=== PATIENT | female | born 1945 | race Caucasian/White ===

== ENCOUNTER 2020-05-26 17:24 | Inpatient (IN) ==
[2020-05-26] MEDS ORDERED: SODIUM CHLORIDE 0.9% 1000ML 1,000 ML IV ONE ×2 (18:57→21:41)
--- NOTE | 2020-05-26 19:02 | Emergency Department Note ---
Impression & Plan JAD (acute kidney injury), Renal cell carcinoma, Pleural effusion ED Provider Note NAME: GREGORIO MENCHACA AGE: 75 SEX: F : 1945 ARRIVES VIA: Walk-In INFORMANT: Patient ED PROVIDER(S): Venkat Mosqueda DO CHIEF COMPLAINT: Shortness of breath and belly pain HPI: Patient is a 75-year-old female who presents ER for shortness of breath. This is been present for the past 2 weeks and gradually worsening. She has a history of renal cell carcinoma with a left Pleurx catheter which has been being used to drain fluid in her lungs. She also admits to belly pain with nausea and vomiting. She has been unable to eat and drink much. Pain is diffuse throughout the whole belly and constant. She has been having persistent vomiting. She feels very weak and rundown. Denies any dysuria, urgency or frequency. No other exacerbating or remitting factors. She did have a recent change in her chemo medications and now has 2 new oral medications. ROS: See above HPI for pertinent positives & negatives. A total of 10 systems reviewed and were otherwise negative. PAST MEDICAL HISTORY:See Below PAST SURGICAL HISTORY:See Below FAMILY HISTORY:See Below SOCIAL HISTORY:See Below HOME MEDICATIONS:See Below ALLERGIES:See Below VITALS:See Below PHYSICAL EXAMINATION: GENERAL: Sitting up in bed, alert, chronically ill-appearing, disheveled EYE EXAM: normal conjunctiva. OROPHARYNX: dry NECK: supple, no nuchal rigidity, no adenopathy, non-tender LUNGS: Clear to auscultation. Normal chest wall mechanics. Pleurx catheter in the left lower chest wall HEART: no murmurs, S1 normal and S2 normal ABDOMEN: abdomen soft, non-tender, normo-active bowel sounds, no masses, no rebound or guarding. BACK: Back is symmetrical on inspection and there is no deformity, no midline tenderness, no CVA tenderness. SKIN: no rashes and no bruising UPPER EXTREMITIES: upper extremities are grossly normal. LOWER EXTREMITIES: No pitting edema. NEURO EXAM: Normal sensorium, cranial nerves II-XII grossly intact, normal speech, no gross weakness of arms, no gross weakness of legs. MEDICAL DECISION MAKING: Patient is a 75-year-old female who presents the ER for weakness associated with nausea vomiting. She has been unable to eat or drink much recently. History of renal cell carcinoma on chemotherapy. She does admit to some shortness of breath as well. She is on Lovenox. IV was established blood work was obtained. Labs show mild leukopenia 4000. No significant anemia. BMP with a creatinine of 2.1 up from a baseline of 1. LFTs and bilirubin are unremarkable. Troponin was detectable at 0.051. Lipase was unremarkable. Covid was negative. CT abdomen pelvis and chest shows pleural effusion which is improved from previous. Patient was updated bedside admitted to hospital for further work-up Triage Nursing notes reviewed. Limited review of prior medical records performed Vital Signs: reviewed and remarkable for hypotension Differential diagnosis: Infection, dehydration, metabolic abnormality, hypo/hyperglycemia, electrolyte disturbance, anemia, hypoxia, cardiac sources, intracerebral event, toxicologic, neurologic, as well as other pathologies. ER treatment provided: See below Diagnostics interpreted by me: ECG: Sinus rhythm rate 85 Left axis No PVCs Septal Q waves QTC 428 Cardiac Monitoring: An order was placed for continuous cardiac monitoring. The monitor shows a rate of 81 with sinus rhythm. Laboratory studies: As stated above and show below. Imaging studies: CT of the chest and abdomen pelvis shows pleural effusion Consultation(s): Discussed with hospitalist for further evaluation Procedures: none Critical Care: None Past Med/Surg History Medical History Acid reflux Acoustic neuroma Chronic anticoagulation Diabetes Stopped med History of chemotherapy History of pulmonary embolism Hypertension Hypothyroidism Malignant pleural effusion Presence of IVC filter Removed in Dec. 2018 Pulmonary embolism Renal cell carcinoma (~2012) Shortness of breath Surgical History H/O craniotomy H/O right nephrectomy 03/30/13 H/O: hysterectomy Hx of cataract surgery Bilateral S/P bronchoscopy with biopsy Status post bilateral knee replacements Family History Mother , 92yo Lung cancer Father , 80yo Cancer of eye Metastatic Diabetes Brother Prostate cancer Daughter No problems noted. 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 Other Information That Helps Us Care for You: No Feels Safe at Home: Yes Safety Concerns: Feels Safe At This Time caffeine: Yes (4 cups/day) during the past year weight has: remained stable Assistive Devices: None Allergies Allergies Allergy/AdvReac Type Severity Reaction Status Date / Time [place] And Derivatives Allergy Intermediate Hives Verified 04/29/20 13:02 Iodinated Contrast Media Allergy Intermediate Hives Verified 04/29/20 13:02 [Iodinated Contrast- Oral and IV Dye] shellfish derived Allergy Intermediate Hives Verified 04/29/20 13:02 valsartan Allergy Unknown Unknown Verified 04/29/20 13:02 nivolumab [From Opdivo] AdvReac Intermediate Generalized Verified 04/29/20 13:02 edema pazopanib [From Votrient] AdvReac Intermediate pneumonia Verified 04/29/20 13:02 sunitinib [From Sutent] AdvReac Intermediate Insomnia Verified 04/29/20 13:02 Home Meds Home Medications Medication Instructions Recorded Confirmed allopurinol 100 mg tablet 100 mg PO BID tab 09/17/19 05/26/20 enoxaparin 40 mg/0.4 mL 40 mg SQ BID ml 09/17/19 05/26/20 subcutaneous syringe levothyroxine 137 mcg capsule 137 mcg PO DAILY 09/17/19 05/26/20 pantoprazole 40 mg tablet,delayed 40 mg PO DAILY 09/17/19 05/26/20 release prochlorperazine maleate 10 mg 10 mg PO Q6H PRN 09/17/19 05/26/20 tablet vitamin B complex 1 tab PO DAILY 09/17/19 05/26/20 amlodipine 5 mg tablet 10 mg PO DAILY tab 10/05/19 05/26/20 diphenoxylate-atropine 2.5 1 tab PO DAILY tab 10/05/19 05/26/20 mg-0.025 mg tablet oxycodone-acetaminophen 10 mg-325 1 tab PO Q4H PRN 10/05/19 05/26/20 mg tablet atenolol 50 mg tablet 50 mg PO DAILY tab 04/29/20 05/26/20 [id number] [Ed 1 tab PO Q8H PRN 05/26/20 05/26/20 A-Hist DM] cholecalciferol (vitamin D3) 50 mcg PO DAILY 05/26/20 05/26/20 dexamethasone 10 ml PO Q6H 05/26/20 05/26/20 everolimus (antineoplastic) 5 mg PO DAILY 05/26/20 05/26/20 lenvatinib [Lenvima] 0 mg PO DAILY 05/26/20 05/26/20 psyllium [Metamucil Sugar Free] 1 tbsp PO DAILY 05/26/20 05/26/20 Previous Rx's Medication Instructions Recorded fluticasone propionate 50 1 spray INTRANASAL DAILY #9.9 g 04/29/20 mcg/actuation nasal spray,suspension Results & Data (ED) Vital Signs Vital Signs - 24 hr 05/26/20 17:25 05/26/20 19:20 05/26/20 19:22 Temperature 36.6 C Temperature Source Temporal Artery Scan Pulse Rate 99 H 96 H 96 H Pulse Rate [Right Radial] Pulse Rate from SpO2 Sensor 96 H 97 H Respiratory Rate 18 17 13 Blood Pressure 94/65 L 91/65 L Blood Pressure [Right Arm] Blood Pressure Mean 74 73 Blood Pressure Mean [Right Arm] Pulse Oximetry 95 98 97 Oxygen Delivery Method Room Air Room Air Sepsis Recent Fever Within 48 Hours No Sepsis New/Unexplained Change in Mental Status No Sepsis Action Taken by Nursing No Action Required 05/26/20 20:00 05/26/20 20:20 05/26/20 20:30 Temperature Temperature Source Pulse Rate 98 H 99 H 96 H Pulse Rate [Right Radial] Pulse Rate from SpO2 Sensor 98 H Respiratory Rate 22 20 13 Blood Pressure 117/69 Blood Pressure [Right Arm] Blood Pressure Mean 85 Blood Pressure Mean [Right Arm] Pulse Oximetry 97 Oxygen Delivery Method Sepsis Recent Fever Within 48 Hours Sepsis New/Unexplained Change in Mental Status Sepsis Action Taken by Nursing 05/26/20 20:40 05/26/20 20:46 05/26/20 21:00 Temperature Temperature Source Pulse Rate 94 H 92 H 91 H Pulse Rate [Right Radial] Pulse Rate from SpO2 Sensor 94 H 92 H 91 H Respiratory Rate 15 12 12 Blood Pressure 92/65 L 90/59 L Blood Pressure [Right Arm] Blood Pressure Mean 74 69 Blood Pressure Mean [Right Arm] Pulse Oximetry 96 97 96 Oxygen Delivery Method Sepsis Recent Fever Within 48 Hours Sepsis New/Unexplained Change in Mental Status Sepsis Action Taken by Nursing 05/26/20 21:01 05/26/20 21:25 05/26/20 21:30 Temperature Temperature Source Pulse Rate 91 H 92 H Pulse Rate [Right Radial] 92 H Pulse Rate from SpO2 Sensor 91 H 92 H Respiratory Rate 16 20 12 Blood Pressure 100/59 L Blood Pressure [Right Arm] 90/59 L Blood Pressure Mean 72 Blood Pressure Mean [Right Arm] 69 Pulse Oximetry 97 97 97 Oxygen Delivery Method Room Air Sepsis Recent Fever Within 48 Hours Sepsis New/Unexplained Change in Mental Status Sepsis Action Taken by Nursing 05/26/20 21:31 05/26/20 22:00 05/26/20 22:01 Temperature Temperature Source Pulse Rate 93 H 91 H 92 H Pulse Rate [Right Radial] Pulse Rate from SpO2 Sensor 93 H 92 H 92 H Respiratory Rate 17 15 15 Blood Pressure 99/69 L Blood Pressure [Right Arm] Blood Pressure Mean 79 Blood Pressure Mean [Right Arm] Pulse Oximetry 95 100 98 Oxygen Delivery Method Sepsis Recent Fever Within 48 Hours Sepsis New/Unexplained Change in Mental Status Sepsis Action Taken by Nursing Laboratory Data Result diagrams: 05/26/20 19:30 05/26/20 22:04 Lab Results 05/26/20 05/26/20 05/26/20 Range/Units 19:30 19:30 20:00 WBC 4.47 L (4.8-10.8) K/uL RBC 4.82 (4.2-5.4) M/uL Hgb 15.0 (12.0-16.0) g/dL Hct 43.6 (37-47) % MCV 90.5 (80-100) fL MCH 31.1 (25-34) pg MCHC 34.4 (32-36) g/dL RDW Std Deviation 50.9 H (36.4-46.3) fL RDW Coeff of [place]av[place] 15.3 H (11.5-14.5) % Plt Count 247 (130-400) K/uL MPV 11.4 H (7.4-10.4) fL Immature Gran % (Auto) 0.2 % Neut % (Auto) 68.0 % Lymph % (Auto) 21.0 % Bull[place] % (Auto) 10.1 % Eos % (Auto) 0.7 % Baso % (Auto) 0.0 % Neut # (Auto) 3.04 (1.4-6.5) K/uL Lymph # (Auto) 0.94 L (1.2-3.4) K/uL [place] # (Auto) 0.45 (0.11-0.59) K/uL Eos # (Auto) 0.03 (0-0.5) K/uL Baso # (Auto) 0.00 (0-0.2) K/uL Immature Gran # (Auto) 0.01 (0.00-0.02) K/uL Sodium 136 (136-145) mmol/L Potassium (3.5-5.1) mmol/L Chloride 107 (98-107) mmol/L Carbon Dioxide 19 L (21-32) mmol/L Anion Gap 10.0 (3-11) BUN 36 H (7-18) mg/dl Creatinine 2.13 H (0.6-1.2) mg/dl Est Cr Clr Drug Dosing 25.1 ml/min Est GFR ( Amer) 25.6 Est GFR (Non-Af Amer) 22.1 BUN/Creatinine Ratio 16.9 (10-20) Glucose 132 H (70-99) mg/dl Calcium 8.3 L (8.5-10.1) mg/dl Total Bilirubin 1.2 H (0.2-1) mg/dl AST (15-37) U/L ALT 44 (12-78) U/L Alkaline Phosphatase 142 H (45-117) U/L Troponin I (0-0.045) ng/ml Total Protein 6.6 (6.4-8.2) gm/dl Albumin 2.9 L (3.4-5.0) gm/dl Globulin 3.7 (2.5-4.0) gm/dl Albumin/Globulin Ratio 0.8 L (0.9-2) Lipase 260 (73-393) U/L COVID-19 Eval Order Covid19 [facility] SARS-CoV-2, RNA, NAAT (NEGATIVE) 05/26/20 05/26/20 Range/Units 20:00 22:04 WBC (4.8-10.8) K/uL RBC (4.2-5.4) M/uL Hgb (12.0-16.0) g/dL Hct (37-47) % MCV (80-100) fL MCH (25-34) pg MCHC (32-36) g/dL RDW Std Deviation (36.4-46.3) fL RDW Coeff of Gaviota (11.5-14.5) % Plt Count (130-400) K/uL MPV (7.4-10.4) fL Immature Gran % (Auto) % Neut % (Auto) % Lymph % (Auto) % [place] % (Auto) % Eos % (Auto) % Baso % (Auto) % Neut # (Auto) (1.4-6.5) K/uL Lymph # (Auto) (1.2-3.4) K/uL [place] # (Auto) (0.11-0.59) K/uL Eos # (Auto) (0-0.5) K/uL Baso # (Auto) (0-0.2) K/uL Immature Gran # (Auto) (0.00-0.02) K/uL Sodium (136-145) mmol/L Potassium 4.2 (3.5-5.1) mmol/L Chloride (98-107) mmol/L Carbon Dioxide (21-32) mmol/L Anion Gap (3-11) BUN (7-18) mg/dl Creatinine (0.6-1.2) mg/dl Est Cr Clr Drug Dosing ml/min Est GFR ( Amer) Est GFR (Non-Af Amer) BUN/Creatinine Ratio (10-20) Glucose (70-99) mg/dl Calcium (8.5-10.1) mg/dl Total Bilirubin (0.2-1) mg/dl AST 25 (15-37) U/L ALT (12-78) U/L Alkaline Phosphatase (45-117) U/L Troponin I 0.051 H* (0-0.045) ng/ml Total Protein (6.4-8.2) gm/dl Albumin (3.4-5.0) gm/dl Globulin (2.5-4.0) gm/dl Albumin/Globulin Ratio (0.9-2) Lipase (73-393) U/L COVID-19 Eval Order SARS-CoV-2, RNA, NAAT NEGATIVE (NEGATIVE) Administered Medications Discontinued Medications Sodium Chloride (Nss 1000ml) 1,000 mls @ 999 mls/hr IV .Q1H1M ONE Stop: 05/26/20 19:57 Last Infusion: 05/26/20 21:50 Dose: 0 mls/hr Documented by: [id number] Admin: 05/26/20 20:41 Dose: 999 mls/hr Documented by: [id number] Sodium Chloride (Nss 1000ml) 1,000 mls @ 999 mls/hr IV .Q1H1M ONE Stop: 05/26/20 22:41 Last Admin: 05/26/20 21:53 Dose: 999 mls/hr Documented by: [id number] Ketorolac Tromethamine (Ketorolac Tromethamine 15 Mg/Ml Vial) 15 mg IV NOW ONE Stop: 05/26/20 19:22 Last Admin: 05/26/20 20:41 Dose: 15 mg Documented by: [id number] Ondansetron HCl (Ondansetron Inj 2 Mg/Ml 2 Ml Vial) 4 mg IV NOW STA Stop: 05/26/20 19:22 Last Admin: 05/26/20 20:41 Dose: 4 mg Documented by: [id number] Discharge Plan Visit Data Chief Complaint: Dehydration Stated Complaint: DEHYDRATION ED Provider: Venkat Mosqueda Discharge Problem: JAD (acute kidney injury), Renal cell carcinoma, Pleural effusion Patient Disposition: Admitted As Inpatient Discharge Instructions Interventions: ED Discharge Assessment Last Done: 05/26/20 23:56 Discharge Problem: Renal cell carcinoma Qualifiers: Laterality: unspecified laterality Qualified Code(s): C64.9 - Malignant neoplasm of unspecified kidney, except renal pelvis
[2020-05-26] MEDS ORDERED: ONDANSETRON INJ 2 MG/ML 2 ML VIAL IV STA (19:21)
[2020-05-26] MEDS ORDERED: KETOROLAC TROMETHAMINE 15 MG/ML VIAL IV ONE (19:21)
--- NOTE | 2020-05-26 20:32 | CT Scan Report ---
CT SCAN OF THE CHEST, ABDOMEN, AND PELVIS WITHOUT IV CONTRAST CLINICAL HISTORY: Dyspnea. Generalized abdominal pain. Metastatic renal cell carcinoma. COMPARISON STUDY: CT scan of the chest, abdomen, and pelvis dated 03/28/2020. TECHNIQUE: Unenhanced CT scan of the chest, abdomen, and pelvis was performed from the thoracic inlet to the proximal femora. Images are reviewed in the axial, sagittal, and coronal planes. IV contrast was not administered as per the referring clinician. Note that the examination was performed in signi ficantly suboptimal fashion without oral and IV contrast. A dose lowering technique was utilized adh ering to the principles of ALARA. CT DOSE: 591.08 mGy.cm FINDINGS: CHEST: Thyroid: The left lobe is atrophic versus surgically absent. A calcification is noted in the right lo be. Thoracic aorta: There is mild atherosclerotic calcification of the thoracic aorta, which is normal in caliber and demonstrates standard 3-vessel arch anatomy. Heart: The heart is normal in size noting trace pericardial effusion. The coronary arteries are dense ly calcified. Lungs and pleural spaces: The trachea and central airways are clear. A pleural drain is present at th e right lung base. There is a moderate left pleural effusion with associated atelectasis. This has mo destly decreased in size as compared to 03/28/2020 no right pleural effusion is identified. A 1.7 cm irregular nodule in the right middle lobe seen on image #151has modestly increased in size as compar ed to 03/28/2020. An 1.1 cm right upper lobe nodule on image #118 has not appreciably changed. A 3 mm right apical nodule on image #66 is also stable from previous. There is no pneumothorax. Mediastinum: There is no mediastinal lymphadenopathy. Teagan: Not well assessed without IV contrast. Axillae: There is no axillary lymphadenopathy. Bony thorax: The skeletal structures are osteopenic. Again seen are findings of diffuse/multifocal o steoblastic metastatic disease. Lesions are seen throughout the sternum, the thoracic spine, and invo lving the bilateral ribs. A large erosive lesion is again seen in the left fifth rib with cortical de struction/pathologic fracture both laterally and posteriorly. There is a pathologic compression fract ure of T6 with moderate loss of height and a minimal superior endplate compression fracture of T3. Th miguelangel are similar to previous. Advanced arthritic change is noted in the shoulders. . ABDOMEN AND PELVIS: Liver: The unenhanced liver is normal in size, contour, and attenuation. There is no intrahepatic cristina iary ductal dilatation. Gallbladder: The gallbladder is distended but otherwise normal in appearance. Spleen: Normal in size and attenuation. Pancreas: The unenhanced pancreas is atrophic and grossly unremarkable. Adrenal glands: Unremarkable. Kidneys: The right kidney is surgically absent. The unenhanced left kidney demonstrates cortical atro phy and is without hydronephrosis. . No left renal calculi are identified. There is no evidence of co ntour deforming mass lesion of the left kidney. Abdominal vasculature: The abdominal aorta is normal in course and caliber noting mild to moderate at herosclerotic calcification. Bowel: There is moderate sigmoid diverticulosis without CT evidence of acute diverticulitis. No bowel obstruction is seen. A large incisional hernia in the right lower quadrant contains nonobstructed rashawn wel loops.. The appendix is well-visualized and normal. Peritoneum: There is no intraperitoneal free air or abdominal ascites. Lymphadenopathy: None. Pelvic viscera: The bladder is normal as visualized. The uterus is surgically absent. No adnexal lesi on is seen. There is focal expansion of the left obturator internus muscle seen on axial image #342. This represents a change from 03/28/2020. Skeletal structures: The skeletal structures are osteopenic. Findings of multifocal osteoblastic meta static disease are similar to previous. Soft tissues: Foci of induration within the ventral abdominal wall are likely related to subcutaneous injections. Soft tissue edema is again seen in the left breast. IMPRESSION: 1. Significantly suboptimal examination without oral and IV contrast. 2. A pleural drain at the left lung base is new from the 03/28/2020 examination. 3. There is a moderate left pleural effusion with associated atelectasis. This has modestly decreased in size from 03/28/2020. 4. There is no airspace consolidation typical for pneumonia. 5. Right-sided pulmonary lesions are again noted. A right middle lobe lesion has modestly decreased i n size from previous. 6. Status post right nephrectomy. 7. There is focal expansion of the left obturator internus muscle. This represent a change from 03/28 and likely represents intramuscular hemorrhage. Metastatic disease is considered much less like ly. Attention at follow-up is recommended. 8. A large hernia in the right lower quadrant contains nonobstructed bowel loops. 9. Multifocal osseous metastatic disease is similar to previous. 10. Additional findings as above. ACT 112: Negative or not required by law. Electronically signed by: Navdeep Arana M.D. 05/26/2020 8:31 PM
[2020-05-26 21:02] LABS: Eosinophils # (auto) 0.03 K/uL (0-0.5); Eosinophils % (auto) 0.7 %; Hematocrit (blood only) 43.6 % (37-47); Immature Granulocytes # (auto) 0.01 K/uL (0.00-0.02); Immature Granulocytes % (auto) 0.2 %; Lymphocytes # (auto) 0.94 K/uL (1.2-3.4); Mean Corpuscular Hemoglobin 31.1 pg (25-34); Mean Corpuscular Hgb Conc 34.4 g/dL (32-36); Mean Corpuscular Volume 90.5 fL (80-100); Mean Platelet Volume 11.4 fL (7.4-10.4); Monocytes # (auto) 0.45 K/uL (0.11-0.59); Monocytes % (auto) 10.1 %; Neutrophils # (auto) 3.04 K/uL (1.4-6.5); Platelet Count 247 K/uL (130-400); RDW Coefficient of Variation 15.3 % (11.5-14.5); RDW Standard Deviation 50.9 fL (36.4-46.3); Red Blood Count 4.82 M/uL (4.2-5.4); White Blood Count 4.47 K/uL (4.8-10.8)
[2020-05-26 21:30] LABS: Albumin Globulin Ratio 0.8 (0.9-2); Albumin Level 2.9 gm/dl (3.4-5.0); BUN Creatinine Ratio 16.9 (10-20); Bilirubin,Total 1.2 mg/dl (0.2-1); Calcium 8.3 mg/dl (8.5-10.1); Creatinine Clr Calc Pharmacy 25.1 ml/min; Est GFR (African American) 25.6; Est GFR (Non-African American) 22.1; Globulin 3.7 gm/dl (2.5-4.0); Total Protein 6.6 gm/dl (6.4-8.2)
--- NOTE | 2020-05-26 22:26 | History & Physical Report ---
Date of Service May 26, 2020 Assessment & Plan (1) Dyspnea: 75-year-old female past medical history significant for metastatic renal cell carcinoma s/p right nephrectomy with malignant pleural effusion s/p Pleurx catheter, hypertension, hypothyroidism, GERD, history PE on chronic Lovenox therapy admitted for shortness of breath, JAD, malnutrition. Dyspnea with history malignant pleural effusion: On presentation with sensation of dyspnea, saturating well on room air. Mildly elevated troponin to 0.051 without EKG changes. Will trend this. Patient has had shortness of breath constant for several weeks, unlikely to be cardiac in origin. CT chest shows moderate sized left pleural effusion, is not mentioned to be loculated but patient does note decreased output over the last 2 week or so. Patient does have a history of PE in the past, however has been on therapeutic Lovenox twice daily, and is not hypoxic on presentation. No findings on imaging suggestive of pneumonia. Pulmonology consult placed to evaluate pleural effusion and PleurX, unclear if patient may benefit from intervention such as intra-PleurX alteplase. Incentive spirometer every hour while awake for findings of atelectasis. JAD: Patient on arrival with JAD to 2.13, hypotension, elevated BUN suggestive of prerenal JAD. This is in the setting of decreased p.o. intake of both food and fluids for several weeks due to decreased appetite, as well as fluid loss secondary to vomiting. Received 1 L NSS bolus in ER, continue NSS at 100 cc/hr and encourage p.o. intake, antiemetics on board. Can decrease IV fluids as patient tolerates p.o. intake. Monitor BP, and CMP in the morning. Severe protein calorie malnutrition: Patient admits to several weeks of poor appetite, as well as nausea and vomiting. Does not take antiemetics at home. Since last admission in April of this year, patient has lost 9 kg in weight. Dietary consult placed, and boost supplements twice daily ordered. Compazine and Zofran as needed for nausea/vomiting. Metastatic renal cell carcinoma: Currently on Lenvima and everolimus therapies, follows with Dr. Powell with oncology. Consult placed given patient's relative intolerance to these medications over the last week. Continue chemotherapeutic agents for now. Elevated Alk Phos: Noted to have Alk Phos of 142 on admission, no abdominal complaints though has had nausea and vomiting suspected to be due to chemotherapy medications. Patient does have bony metastases which could account for elevation. Repeat Alk Phos in AM. Will evaluate further if still elevated. Hypothyroidism: Continue home levothyroxine. GERD: Continue home pantoprazole. CODE STATUS: DNR/DNI FEN GI: Regular diet, boost twice daily, NSS at 100 cc/hr DVT prophylaxis: Continue therapeutic Lovenox 40 mg SQ twice daily Dispo: Med/Surg for dietary evaluation, Pulmonology and Oncology consults, PT/OT (2) JAD (acute kidney injury): (3) History of pulmonary embolism: (4) Malignant pleural effusion: (5) Hypothyroidism: (6) Acid reflux: (7) Nausea: (8) Severe protein-calorie malnutrition: (9) Metastatic renal cell carcinoma: History of Present Illness Chief Complaint: SOB Primary Care Provider: Yaritza Hawkins PA-C 75-year-old female past medical history significant for metastatic renal cell carcinoma s/p right nephrectomy with malignant pleural effusion s/p Pleurx catheter, hypertension, hypothyroidism, GERD, history PE on chronic Lovenox therapy who presented to the ER for worsening shortness of breath over the last 2 weeks, without associated chest pain, diaphoresis, abdominal pain, recent fevers or chills. Reports that over the same amount of time, she has noticed a decrease in output from her Pleurx catheter. She also reports that about a week ago some of her chemotherapy medications were changed, and she started Lenvima and everolimus therapy at the direction of Dr. Powell. She admits that since getting the Pleurx catheter her appetite has been getting worse and worse, such that she has to "force herself to eat and drink, and every time she does she feels like she is going to throw up". Has been having a lot of dry heaves, and therefore eats very little. In the ER patient was found to have leukopenia to 4.47 without neutropenia, elevated BUN and creatinine to 2.13, mildly elevated alk phos to 142, mildly elevated troponin to 0.051 without EKG changes suggestive of [place]. COVID-[address] chest showed moderate left pleural effusion and atelectasis, no findings suggestive of pneumonia. Allergies Allergy/AdvReac Type Severity Reaction Status Date / Time [place] And Derivatives Allergy Intermediate Hives Verified 04/29/20 13:02 Iodinated Contrast Media Allergy Intermediate Hives Verified 04/29/20 13:02 [Iodinated Contrast- Oral and IV Dye] shellfish derived Allergy Intermediate Hives Verified 04/29/20 13:02 valsartan Allergy Unknown Unknown Verified 04/29/20 13:02 nivolumab [From Opdivo] AdvReac Intermediate Generalized Verified 04/29/20 13:02 edema pazopanib [From Votrient] AdvReac Intermediate pneumonia Verified 04/29/20 13:02 sunitinib [From Sutent] AdvReac Intermediate Insomnia Verified 04/29/20 13:02 Home Medications Medication Instructions Recorded Confirmed Type allopurinol 100 mg tablet 100 mg PO BID tab 09/17/19 05/26/20 History enoxaparin 40 mg/0.4 mL 40 mg SQ BID ml 09/17/19 05/26/20 History subcutaneous syringe levothyroxine 137 mcg capsule 137 mcg PO DAILY 09/17/19 05/26/20 History pantoprazole 40 mg tablet,delayed 40 mg PO DAILY 09/17/19 05/26/20 History release prochlorperazine maleate 10 mg 10 mg PO Q6H PRN 09/17/19 05/26/20 History tablet vitamin B complex 1 tab PO DAILY 09/17/19 05/26/20 History amlodipine 5 mg tablet 10 mg PO DAILY tab 10/05/19 05/26/20 History diphenoxylate-atropine 2.5 1 tab PO DAILY tab 10/05/19 05/26/20 History mg-0.025 mg tablet oxycodone-acetaminophen 10 mg-325 1 tab PO Q4H PRN 10/05/19 05/26/20 History mg tablet atenolol 50 mg tablet 50 mg PO DAILY tab 04/29/20 05/26/20 History fluticasone propionate 50 1 spray INTRANASAL DAILY #9.9 g 04/29/20 05/26/20 Rx mcg/actuation nasal spray,suspension [id number] [Ed 1 tab PO Q8H PRN 05/26/20 05/26/20 History A-Hist DM] cholecalciferol (vitamin D3) 50 mcg PO DAILY 05/26/20 05/26/20 History dexamethasone 10 ml PO Q6H 05/26/20 05/26/20 History everolimus (antineoplastic) 5 mg PO DAILY 05/26/20 05/26/20 History lenvatinib [Lenvima] 0 mg PO DAILY 05/26/20 05/26/20 History psyllium [Metamucil Sugar Free] 1 tbsp PO DAILY 05/26/20 05/26/20 History Past Med/Surg History Medical History Acid reflux Acoustic neuroma Chronic anticoagulation Diabetes Stopped med History of chemotherapy History of pulmonary embolism Hypertension Hypothyroidism Malignant pleural effusion Presence of IVC filter Removed in 2018 Pulmonary embolism Renal cell carcinoma (~2012) Shortness of breath Surgical History H/O craniotomy H/O right nephrectomy 03/30/13 H/O: hysterectomy Hx of cataract surgery Bilateral S/P bronchoscopy with biopsy Status post bilateral knee replacements Family History Mother , 92yo Lung cancer Father , 80yo Cancer of eye Metastatic Diabetes Brother Prostate cancer Daughter No problems noted. 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 Other Information That Helps Us Care for You: No Feels Safe at Home: Yes Safety Concerns: Feels Safe At This Time caffeine: Yes (4 cups/day) during the past year weight has: remained stable Assistive Devices: None Review of Systems Review of Systems: All systems reviewed & are unremarkable except as noted in HPI & below Constitutional: + malaise and + weakness (full body); no fever and no chills Respiratory: + dyspnea; no cough Cardiovascular: no chest pain, no palpitations and no edema Gastrointestinal: + nausea and + vomiting; no abdominal pain, no constipation and no diarrhea/loose stools Genitourinary: no dysuria and no hematuria Neurologic: no dizziness, no syncope and no headache(s) Physical Exam Constitutional: WD/WN, vitals as above Eyes: PERRL, conjunctivae normal, anicteric sclerae ENMT: external ear and nose normal, oropharynx normal Neck: normal visual inspection Respiratory: normal respiratory effort; does not use accessory muscles and no cough Decreased breath sounds left lung base, no wheezes, no crackles Cardiovascular: Rate/Rhythm: regular rate and regular rhythm Heart Sounds: no murmur L>R 1+ peripheral edema, no calf tenderness Gastrointestinal (Abdomen): normal bowel sounds, soft, nontender, no hepatosplenomegaly Musculoskeletal: no cyanosis or clubbing, extremities motor strength 5/5 Skin: no rashes, warm and dry Left Pleurx catheter site clean, dry, no purulent drainage, no erythema or tenderness Neurologic: AAOx3, normal speech. Bilateral UE, LE, and face without sensory or motor deficits. Psychiatric: A+Ox3, euthymic affect Results & Data Results & Data ([facility]) Vital Signs (Past 12 Hours) Vital Signs Temp Pulse Pulse Resp BP BP Pulse Ox 05/26/20 22:01 92 H 15 98 05/26/20 22:00 91 H 15 99/69 L 100 05/26/20 21:31 93 H 17 95 05/26/20 21:30 92 H 11 L 100/59 L 97 05/26/20 21:25 92 H 20 90/59 L 97 05/26/20 21:01 91 H 16 97 05/26/20 21:00 91 H 12 90/59 L 96 05/26/20 20:46 92 H 12 92/65 L 97 05/26/20 20:40 94 H 15 96 05/26/20 20:30 96 H 13 05/26/20 20:20 99 H 20 05/26/20 20:00 98 H 22 117/69 97 05/26/20 19:22 96 H 13 97 05/26/20 19:20 96 H 17 91/65 L 98 05/26/20 17:25 36.6 C 99 H 18 94/65 L 95 Code Status & VTE Plan VTE Prophylaxis Plan VTE Prophylaxis will be ordered: Yes Supervising Physician Co-Signing Physician Notes Patient seen and examined, chart reviewed, case discussed with Dr. Meléndez at time of admission and I agree with her assessment and plan as docuemented above. Briefly, Ms. Hedrick is a 75yo female with history of metastatic RCC with recurrent malignant pleural effusion s/p PleurX catheter placement, HTN, PE on Lovenox presenting with SOB, JAD On exam she is cachectic, chronically ill in appearance HEENT - NC/AT, PERRL, MMM Heart - +S1/S2, regular, no m/r/g, 1+ peripheral edema Lungs - Diminished breath sounds in left base - pleurX catheter in place with dressing covering c/d/i Abd - +BS, soft, mildly tender with deep palpation, no rebound/guarding/peritoneal signs Ext - 1+ edema Labs and images reviewed. Significant for chronic leukopenia, Elevated BUN and Cr from baseline to 36 and 2.13, respectively. Tbili=1.2, US=524, Trop = 0.051 Assessment/Plan - suspect element of dehydration - JAD -Gentle IVF -Dietary consultation -Repeat LFTs with additional imaging if worsening -Pulmonary consultation appreciated for PleurX evaluation -Remainder of plan as above Resident Activity Tracking Resident Involvement: Resident Care Provided Care Provided: Adult Hospital Medicine (1) Metastatic renal cell carcinoma Laterality: right Qualified Code(s): C64.1 - Malignant neoplasm of right kidney, except renal pelvis
[2020-05-26 22:36] LABS: Potassium 4.2 mmol/L (3.5-5.1)
[2020-05-26 22:53] LABS: Troponin I 0.051 ng/ml (0-0.045)
[2020-05-26 23:16] LABS: Appearance Urine Clear (Clear); Bacteria Urine Automated Negative (Negative); Blood Urine Negative (Negative); Color Urine Dark Yellow; Epithelial Cell Urine Auto >30 /lpf (0-5); Glucose Urine UA Negative (Negative); Ketones Urine 1+ (Negative); Leukocyte Esterase Urine Trace (Negative); Nitrite Urine Negative (Negative); Protein Urine 2+ (Negative); RBC Urine Automated 0-4 /hpf (0-4); Specific Gravity Urine 1.019 (1.000-1.030); Urobilinogen Urine Negative (Negative); pH Urine 5.5 (4.5-7.5)
[2020-05-26 23:45] LABS: Bilirubin Urine 2+ (Negative)
[2020-05-27] MEDS ORDERED: PROCHLORPERAZINE MALEATE 10 MG TAB PO PRN (00:19)
[2020-05-27] MEDS ORDERED: POLYETHYLENE (MIRALAX) 17 GM PACK PO PRN (00:19)
[2020-05-27] MEDS ORDERED: ONDANSETRON INJ 2 MG/ML 2 ML VIAL IV PRN (00:19)
[2020-05-27] MEDS: SODIUM CHLORIDE 0.9% 1000ML 1,000 ML IV SCH ×3 (00:30→23:51)
[2020-05-27] MEDS ORDERED: ENOXAPARIN INJ 30 MG/0.3 ML SYR SQ ONE (00:45)
--- NOTE | 2020-05-27 02:58 | Billing Data ---
Date of Service May 26, 2020 Coding Level of Care Code 60501 Initial Inpt Care Lvl 3
[2020-05-27] MEDS: LEVOTHYROXINE SODIUM 137 MCG TABLET PO SCH (05:08)
[2020-05-27 06:29] LABS: Eosinophils % (auto) 2.9 %; Hemoglobin 12.3 g/dL (12.0-16.0); Immature Granulocytes # (auto) 0.01 K/uL (0.00-0.02); Immature Granulocytes % (auto) 0.3 %; Lymphocytes # (auto) 0.98 K/uL (1.2-3.4); Lymphocytes % (auto) 28.3 %; Mean Corpuscular Hemoglobin 30.2 pg (25-34); Mean Corpuscular Hgb Conc 33.2 g/dL (32-36); Mean Corpuscular Volume 90.9 fL (80-100); Mean Platelet Volume 11.1 fL (7.4-10.4); Monocytes # (auto) 0.45 K/uL (0.11-0.59); Neutrophils # (auto) 1.92 K/uL (1.4-6.5); Neutrophils % (auto) 55.5 %; Platelet Count 188 K/uL (130-400); RDW Coefficient of Variation 15.4 % (11.5-14.5); RDW Standard Deviation 51.4 fL (36.4-46.3); Red Blood Count 4.07 M/uL (4.2-5.4); White Blood Count 3.46 K/uL (4.8-10.8)
[2020-05-27 07:26] LABS: Albumin Globulin Ratio 0.8 (0.9-2); Albumin Level 2.1 gm/dl (3.4-5.0); BUN Creatinine Ratio 19.7 (10-20); Creatinine Clr Calc Pharmacy 31.8 ml/min; Est GFR (African American) 34.1; Est GFR (Non-African American) 29.4; Globulin 2.7 gm/dl (2.5-4.0); Potassium 3.9 mmol/L (3.5-5.1); Total Protein 4.8 gm/dl (6.4-8.2); Troponin I 0.053 ng/ml (0-0.045)
[2020-05-27] MEDS: FLUTICASONE PROPIONATE NA SPR 16 GM BTL SCH (08:19)
[2020-05-27] MEDS: allopurinoL 100 MG TAB PO SCH ×2 (08:32→20:32)
[2020-05-27] MEDS: DIPHENOXYLATE/ATROPINE 2.5/0.025MG TAB PO SCH (08:32)
[2020-05-27] MEDS: PANTOprazole 40 MG TAB PO SCH (08:32)
[2020-05-27] MEDS: ATENOLOL 50 MG TABLET PO SCH (08:34)
--- NOTE | 2020-05-27 08:51 | Hospitalist Progress Note ---
Date of Service May 27, 2020 Assessment & Plan Admission and Anticipated Discharge Date Admission Date: May 26, 2020 Results & Data Results & Data ([facility]) Vital Signs (Past 12 Hours) Vital Signs Temp Pulse Pulse Pulse Resp BP BP 05/27/20 07:24 36.5 C 104 H 16 95/60 L 05/27/20 00:19 36.8 C 104 H 20 05/26/20 23:56 92 H 16 90/67 L 05/26/20 23:31 93 H 20 05/26/20 23:30 93 H 15 90/67 L 05/26/20 23:03 99 H 21 05/26/20 22:31 90 14 05/26/20 22:30 90 15 107/58 L 05/26/20 22:01 92 H 15 05/26/20 22:00 91 H 15 99/69 L 05/26/20 21:31 93 H 17 05/26/20 21:30 92 H 12 100/59 L 05/26/20 21:25 92 H 20 05/26/20 21:01 91 H 16 05/26/20 21:00 91 H 12 90/59 L BP Pulse Ox 05/27/20 07:24 93 05/27/20 00:19 97/64 L 93 05/26/20 23:56 95 05/26/20 23:31 96 05/26/20 23:30 95 05/26/20 23:03 94 05/26/20 22:31 97 05/26/20 22:30 97 05/26/20 22:01 98 05/26/20 22:00 100 05/26/20 21:31 95 05/26/20 21:30 97 05/26/20 21:25 90/59 L 97 05/26/20 21:01 97 05/26/20 21:00 96
--- NOTE | 2020-05-27 09:07 | Hospitalist Progress Note ---
Date of Service May 27, 2020 Assessment & Plan Admission and Anticipated Discharge Date Admission Date: May 26, 2020 Kelin is a 57 year old female with a pertinent hx of metastatic renal cell carcinoma recently on a course of chemo that she was unable to complete and malignant pleural effusions with a pleurx catheter placed in early April who presented with a 2 week history of shortness of breath accompanied by n/v, abdominal pain, and decreased PO intake who was found to be in a prerenal JAD on admission. DDx- pleural effusions, atelectasis, PNA, pneumothorax Possible causes for her SOB include her currently pleural effusions. Although im proved from previous admission, her pleurx catheter drainage has been decreasing as compared to before. She is currently using incentive spirometry to monitor for atelectasis. Imaging in the ED did not show evidence of pneumonia or pneumothorax. Dyspnea - Incentive spirometry - Pleurx Catheter JAD - NSS 100 cc/hr - encourage PO intake - antiemetics (Compazine and Zofran) available Severe protein calorie malnutrition - Normal diet - Boost supplements twice daily - Antiemetics Metastatic Renal Cell Carcinoma - lenvatinib and everolimus Elevated alkaline phosphate - 142 on admission, this AM 103 - Bony mets of the thoracic spine and ribs seen on CT Hypothyroidism - Continue levothyroxine GERD - Continue Pantoprazole DVT prophylaxis - Lovenox (30 mg SQ BID) Code status: DNR/DNR Supervising Physician Co-Signing Physician Notes Medical Student Supervision Note: I was personally present during medical student patient encounter and independently interviewed and examined the patient and verified the gallegos history and physical, reviewed labs and image studies, discussed the case with Mari Millard and agree with the findings and care plan. JAD due to Poor oral intake sec to chemotherapy leading to severe dehydration/protein/calorie malnutrition - IV hydration. encourage PO intake. Dietary consult. Decision to d/c chemo awaiting discussion with primary oncologist. Dyspneic symptom likely from severe dehydration and hypovolemia - continue as above. Subjective Kelin Hedrick is a 75 year old female with a pertinent past medical history of metastatic renal cell carcinoma with right nephrectomy, malignant pleural effusions with pleurx catheter, admitted last night from the ED for a 2 week history of shortness of breath. In early April she was admitted for SOB of breath and found to be in mild hypoxia with a left pleural effusions, treated with a thoracocentesis and pleurx catheter. She has had difficulty breathing when just trying to walk a feet. She has also had accompany upper belly pain, nausea and vomiting, and decreased appetite. She began her new chemo regime on May 14 through May 22. On the first day she experienced diarrhea, nausea, and muscle aches without fevers or chills. She progressively developed more nausea and vomiting with decreased appetite. She does not take an anti-emetics at home. She felt generalized weakness by the end of the week. On presentation to the ED she was found to have a prerenal JAD and treated with 1 L NSS Bolus. Compazine and Zofran are available for nausea as needed. Troponin was elevated at 0.051 and alkaline phosphate was elevated at 142. CT showed pleural effusions that have improved since her April admission. Today she reports fatigue attributed to not sleep last night. She continues to not have an appetite and did not eat her breakfast. She is working on her fluid intake but it is still decreased. Review of Systems Review of Systems: ROS Constitutional: -fever/chills, +nausea, -vomiting, +decreased appetite, Head: -LOC, -change in vision, -lightheadedness Neurologic: -syncope, -focal weakness, -numbness, -dizziness Cardiac: -chest pain, -edema Pulm: -cough, -sputum production, +SOB, -pain on inspiration, Skin: -itching, -rashes GI: -diarrhea, - constipation, -abdominal pain, -distention Physical Exam Physical Exam: Physical Exam General: alert and oriented, in no acute distress, fatigued Eyes: pupils equal/round, reactive to light, no scleral icterus Neck: no lymphadenopathy Cardio: RRR, no rubs/ gallop, normal capillary refill, no lower extremity edema Lungs: symmetrical b/l entry and normal effort, clear to auscultation Abdominal: active decreased bowel sounds, abdomen non-distended non-tender Results & Data Results & Data ([facility]) Vital Signs (Past 12 Hours) Vital Signs Temp Pulse Pulse Pulse Resp BP BP 05/27/20 07:24 36.5 C 104 H 16 95/60 L 05/27/20 00:19 36.8 C 104 H 05/26/20 23:56 92 H 16 90/67 L 05/26/20 23:31 93 H 05/26/20 23:30 93 H 15 90/67 L 05/26/20 23:03 99 H 21 05/26/20 22:31 90 14 05/26/20 22:30 90 15 107/58 L 05/26/20 22:01 92 H 15 05/26/20 22:00 91 H 15 99/69 L 05/26/20 21:31 93 H 17 05/26/20 21:30 92 H 12 100/59 L 05/26/20 21:25 92 H 20 I: 2000 mL, O: 0 Lab Results 05/26/20 05/26/20 05/26/20 Range/Units 19:30 19:30 20:00 WBC 4.47 L (4.8-10.8) K/uL RBC 4.82 (4.2-5.4) M/uL Hgb 15.0 (12.0-16.0) g/dL Hct 43.6 (37-47) % MCV 90.5 (80-100) fL MCH 31.1 (25-34) pg MCHC 34.4 (32-36) g/dL RDW Std Deviation 50.9 H (36.4-46.3) fL RDW Coeff of [place] 15.3 H (11.5-14.5) % Plt Count 247 (130-400) K/uL MPV 11.4 H (7.4-10.4) fL Immature Gran % (Auto) 0.2 % Neut % (Auto) 68.0 % Lymph % (Auto) 21.0 % [place] % (Auto) 10.1 % Eos % (Auto) 0.7 % Baso % (Auto) 0.0 % Neut # (Auto) 3.04 (1.4-6.5) K/uL Lymph # (Auto) 0.94 L (1.2-3.4) K/uL [place] # (Auto) 0.45 (0.11-0.59) K/uL Eos # (Auto) 0.03 (0-0.5) K/uL Baso # (Auto) 0.00 (0-0.2) K/uL Immature Gran # (Auto) 0.01 (0.00-0.02) K/uL Sodium 136 (136-145) mmol/L Potassium (3.5-5.1) mmol/L Chloride 107 (98-107) mmol/L Carbon Dioxide 19 L (21-32) mmol/L Anion Gap 10.0 (3-11) BUN 36 H (7-18) mg/dl Creatinine 2.13 H (0.6-1.2) mg/dl Est Cr Clr Drug Dosing 25.1 ml/min Est GFR ( Amer) 25.6 Est GFR (Non-Af Amer) 22.1 BUN/Creatinine Ratio 16.9 (10-20) Glucose 132 H (70-99) mg/dl Calcium 8.3 L (8.5-10.1) mg/dl Total Bilirubin 1.2 H (0.2-1) mg/dl AST (15-37) U/L ALT 44 (12-78) U/L Alkaline Phosphatase 142 H (45-117) U/L Troponin I (0-0.045) ng/ml Total Protein 6.6 (6.4-8.2) gm/dl Albumin 2.9 L (3.4-5.0) gm/dl Globulin 3.7 (2.5-4.0) gm/dl Albumin/Globulin Ratio 0.8 L (0.9-2) Lipase 260 (73-393) U/L Urine Color Urine Appearance (Clear) Urine pH (4.5-7.5) Ur Specific [place] (1.000-1.030) Urine Protein (Negative) Urine Glucose (UA) (Negative) Urine Ketones (Negative) Urine Blood (Negative) Urine Nitrite (Negative) Urine Bilirubin (Negative) Urine Urobilinogen (Negative) Ur Leukocyte Esterase (Negative) Urine WBC (Auto) (0-5) /hpf Urine RBC (Auto) (0-4) /hpf U Hyaline Cast (Auto) (0-5) /lpf U Epithel Cells (Auto) (0-5) /lpf Urine Bacteria (Auto) (Negative) COVID-19 Eval Order Covid19 IDNow [facility] SARS-CoV-2, RNA, NAAT (NEGATIVE) 05/26/20 05/26/20 05/26/20 Range/Units 20:00 22:04 23:00 WBC (4.8-10.8) K/uL RBC (4.2-5.4) M/uL Hgb (12.0-16.0) g/dL Hct (37-47) % MCV (80-100) fL MCH (25-34) pg MCHC (32-36) g/dL RDW Std Deviation (36.4-46.3) fL RDW Coeff of [place] (11.5-14.5) % Plt Count (130-400) K/uL MPV (7.4-10.4) fL Immature Gran % (Auto) % Neut % (Auto) % Lymph % (Auto) % [place] % (Auto) % Eos % (Auto) % Baso % (Auto) % Neut # (Auto) (1.4-6.5) K/uL Lymph # (Auto) (1.2-3.4) K/uL [place] # (Auto) (0.11-0.59) K/uL Eos # (Auto) (0-0.5) K/uL Baso # (Auto) (0-0.2) K/uL Immature Gran # (Auto) (0.00-0.02) K/uL Sodium (136-145) mmol/L Potassium 4.2 (3.5-5.1) mmol/L Chloride (98-107) mmol/L Carbon Dioxide (21-32) mmol/L Anion Gap (3-11) BUN (7-18) mg/dl Creatinine (0.6-1.2) mg/dl Est Cr Clr Drug Dosing ml/min Est GFR ( Amer) Est GFR (Non-Af Amer) BUN/Creatinine Ratio (10-20) Glucose (70-99) mg/dl Calcium (8.5-10.1) mg/dl Total Bilirubin (0.2-1) mg/dl AST 25 (15-37) U/L ALT (12-78) U/L Alkaline Phosphatase (45-117) U/L Troponin I 0.051 H* (0-0.045) ng/ml Total Protein (6.4-8.2) gm/dl Albumin (3.4-5.0) gm/dl Globulin (2.5-4.0) gm/dl Albumin/Globulin Ratio (0.9-2) Lipase (73-393) U/L Urine Color Dark Yellow Urine Appearance Clear (Clear) Urine pH 5.5 (4.5-7.5) Ur Specific [place] 1.019 (1.000-1.030) Urine Protein 2+ H (Negative) Urine Glucose (UA) Negative (Negative) Urine Ketones 1+ H (Negative) Urine Blood Negative (Negative) Urine Nitrite Negative (Negative) Urine Bilirubin 2+ H (Negative) Urine Urobilinogen Negative (Negative) Ur Leukocyte Esterase Trace H (Negative) Urine WBC (Auto) 1-5 (0-5) /hpf Urine RBC (Auto) 0-4 (0-4) /hpf U Hyaline Cast (Auto) 1-5 (0-5) /lpf U Epithel Cells (Auto) >30 H (0-5) /lpf Urine Bacteria (Auto) Negative (Negative) COVID-19 Eval Order SARS-CoV-2, RNA, NAAT NEGATIVE (NEGATIVE) 05/27/20 05/27/20 Range/Units 05:55 05:55 WBC 3.46 L (4.8-10.8) K/uL RBC 4.07 L (4.2-5.4) M/uL Hgb 12.3 (12.0-16.0) g/dL Hct 37.0 (37-47) % MCV 90.9 (80-100) fL MCH 30.2 (25-34) pg MCHC 33.2 (32-36) g/dL RDW Std Deviation 51.4 H (36.4-46.3) fL RDW Coeff of [place] 15.4 H (11.5-14.5) % Plt Count 188 (130-400) K/uL MPV 11.1 H (7.4-10.4) fL Immature Gran % (Auto) 0.3 % Neut % (Auto) 55.5 % Lymph % (Auto) 28.3 % [place] % (Auto) 13.0 % Eos % (Auto) 2.9 % Baso % (Auto) 0.0 % Neut # (Auto) 1.92 (1.4-6.5) K/uL Lymph # (Auto) 0.98 L (1.2-3.4) K/uL [place] # (Auto) 0.45 (0.11-0.59) K/uL Eos # (Auto) 0.10 (0-0.5) K/uL Baso # (Auto) 0.00 (0-0.2) K/uL Immature Gran # (Auto) 0.01 (0.00-0.02) K/uL Sodium 139 (136-145) mmol/L Potassium 3.9 (3.5-5.1) mmol/L Chloride 112 H (98-107) mmol/L Carbon Dioxide 19 L (21-32) mmol/L Anion Gap 9.0 (3-11) BUN 33 H (7-18) mg/dl Creatinine 1.68 H D (0.6-1.2) mg/dl Est Cr Clr Drug Dosing 31.8 ml/min Est GFR ( Amer) 34.1 Est GFR (Non-Af Amer) 29.4 BUN/Creatinine Ratio 19.7 (10-20) Glucose 108 H (70-99) mg/dl Calcium 7.0 L D (8.5-10.1) mg/dl Total Bilirubin 1.0 (0.2-1) mg/dl AST 24 (15-37) U/L ALT 30 (12-78) U/L Alkaline Phosphatase 103 (45-117) U/L Troponin I 0.053 H* (0-0.045) ng/ml Total Protein 4.8 L D (6.4-8.2) gm/dl Albumin 2.1 L (3.4-5.0) gm/dl Globulin 2.7 (2.5-4.0) gm/dl Albumin/Globulin Ratio 0.8 L (0.9-2) Lipase (73-393) U/L Urine Color Urine Appearance (Clear) Urine pH (4.5-7.5) Ur Specific [place] (1.000-1.030) Urine Protein (Negative) Urine Glucose (UA) (Negative) Urine Ketones (Negative) Urine Blood (Negative) Urine Nitrite (Negative) Urine Bilirubin (Negative) Urine Urobilinogen (Negative) Ur Leukocyte Esterase (Negative) Urine WBC (Auto) (0-5) /hpf Urine RBC (Auto) (0-4) /hpf U Hyaline Cast (Auto) (0-5) /lpf U Epithel Cells (Auto) (0-5) /lpf Urine Bacteria (Auto) (Negative) COVID-19 Eval Order SARS-CoV-2, RNA, NAAT (NEGATIVE)
--- NOTE | 2020-05-27 09:49 | Consultation Report ---
DATE OF CONSULTATION: 05/27/2020 REASON FOR CONSULTATION: Metastatic renal cell carcinoma. HISTORY OF PRESENT ILLNESS: The patient is a very pleasant 75-year-old female patient well known to [facility], currently under Dr. Darryl Powell's management for a metastatic renal cell carcinoma. She presented to the Emergency Room 5:30 yesterday evening with worsening shortness of breath over the past 2 weeks without associated chest pain, diaphoresis or fever or chills. She relates over the same amount of time decreased in PleurX catheter output. She recently underwent chemotherapeutic change starting everolimus and Lenvima under the direction of Dr. Powell. Since the PleurX catheter was placed, her appetite has gotten progressively worse along with associated GI symptoms, nausea and vomiting and diarrhea per se. The patient relates having to force herself to increase her p.o. intake and has had issues with dry heaves. The patient was last seen at [facility] by the physician pickling grader at which time (05/08/2020) patient was maintained on a Cabometyx 20 mg p.o. daily until therapeutic change ordered by Dr. Powell of combination Lenvatinib and everolimus. The hospitalist service has requested a consultation on assistance with the patient's side effects to these new chemotherapeutic agents. PAST MEDICAL HISTORY: Significant for metastatic renal cell carcinoma. Original diagnosis was established in 2012, status post right nephrectomy. Her initial stage was III (T3a, Nx, M0). She also suffers from diabetes mellitus, history of pulmonary embolism, hypertension, hypothyroidism, malignant pleural effusion, IVC filter. PAST SURGICAL HISTORY: Status post right nephrectomy in 03/2013, hysterectomy, cataract surgery, craniotomy, bronchoscopy with biopsy status post bilateral knee replacements. MEDICATIONS: Prior to admission include allopurinol 100 mg p.o. b.i.d., Lovenox 40 mg subcutaneous b.i.d., levothyroxine 137 mcg p.o. daily, Protonix 40 mg p.o. daily, Compazine 10 mg p.o. q. 6 hours, vitamin B complex 1 tablet p.o. every day, amlodipine 10 mg p.o. daily, Lomotil 1 tablet p.o. daily, oxycodone/acetaminophen 1 tablet p.o. q. 4 hours p.r.n., atenolol 50 mg p.o. daily, Flonase 1 spray intranasally daily, cholecalciferol 50 mcg p.o. daily, dexamethasone 10 mL p.o. q. 6 hours, everolimus 5 mg p.o. daily, and Lenvima dose unknown. ALLERGIES: SUNITINIB, PAZOPANIB, NIVOLUMAB, VALSARTAN, SHELLFISH, IV CONTRAST DYE, [place] AND DERIVATIVES. FAMILY HISTORY: Mother of lung cancer at age 92. Father of metastatic melanoma (ocular). She has a brother with prostate cancer. Son suffers from colorectal cancer. SOCIAL HISTORY: The patient is . She lives with her daughter. She is a nonsmoker, nondrinker, non-illicit drug user. REVIEW OF SYSTEMS: CONSTITUTIONAL: As per HPI, most notably for steady clinical decline, reduced p.o. intake, nausea and vomiting, dry heaves. Negative for fevers, chills or sweats. SKIN: No rashes or lesions. No history of dermatoses. HEENT: Negative for headaches, lightheadedness or dizziness. No acute visual or hearing deficits. No sinus symptoms, sore throat or dysphagia. LYMPH: No history of lymphoproliferative disease. CARDIAC: No history of coronary artery disease, no angina or palpitations. PULMONARY: Negative for COPD. She does have a PleurX catheter in place for a malignant pleural effusion. No cough or hemoptysis reported. GASTROINTESTINAL: Positive for nausea and vomiting. No abdominal pain. Positive for intermittent diarrhea. No hematochezia or melena stools. GENITOURINARY: No hematuria, dysuria, urinary incontinence. MUSCULOSKELETAL: No arthralgias. No focal muscle weakness. ENDOCRINE: Positive for hypothyroidism. NEUROLOGIC: Negative for seizure, stroke, or migraine headache. HEMATOLOGIC: Positive for leukopenia and borderline anemia. PHYSICAL EXAMINATION: GENERAL: Very pleasant 75-year-old female, awake, alert and appropriate, in no acute distress. VITAL SIGNS: Temperature 36.5, pulse 104, respiratory rate 16, blood pressure 95/60. SKIN: Warm, dry, noncyanotic without petechia, rash or ecchymosis. HEENT: Head is atraumatic, normocephalic. Eyes: PERRLA, EOMI. Nares are patent without rhinorrhea or discharge. Throat clear. Tongue midline. No buccal lesions or ulcerations. NECK: Supple without JVD or thyromegaly. HEART: Regular rate and rhythm. LUNGS: Clear to auscultation bilaterally. ABDOMEN: Soft, nontender, nondistended. EXTREMITIES: No clubbing, cyanosis or edema. MUSCULOSKELETAL: Strength and pulses are equal in all 4 quadrants. NEUROLOGIC: Awake, alert and oriented x3. Cranial nerves are intact. LABORATORY DATA: WBC count 3460, hemoglobin 12.3, platelet count 188,000. Sodium 139, potassium 3.9, chloride 112, carbon dioxide 19, creatinine 1.68, BUN 33. RADIOGRAPHIC DATA: CT scan of the chest, abdomen and pelvis, suboptimal examination without oral or IV contrast, pleural drain noted in the left lung base. Moderate left pleural effusion with associated atelectasis, modestly decreased in size since mid 03/2020. No airspace consolidation typical for pneumonia, right sided pulmonary lesions were again noted, status post right nephrectomy, multiple focal osseous metastatic disease is similar to previous focal expansion of left obturator internus muscle thought to represent a possible intramuscular hemorrhage. IMPRESSION: 1. Shortness of breath/dyspnea. 2. Metastatic renal cell carcinoma. 3. Hypothyroidism. 4. Gastroesophageal reflux. 5. Acute renal injury. PLAN: It was my pleasure to visit with the patient this morning at bedside. She is feeling a bit better since admission to hospital. In short, she recently underwent a therapeutic change under Dr. Powell's direction with everolimus and Levantinib. She estimates roughly a week ago. She remained on therapy for approximately 6 days and discontinued on her own accord because of feeling poorly. I am not sure of communications with our office and we will discuss further with Dr. Powell moving forward. This lady was diagnosed originally in 2012, has appeared to be heavily pretreated and intolerant to most of her therapies moving forward. Prior to therapeutic change. She was maintained on cabozantinib. Scans on admission clearly demonstrate disease progression. I briefly discussed the possibility of discontinuing therapy altogether at this point. The patient seems to be warm to that idea moving forward. That said, again would like to discuss with Dr. Powell before formally pushing her towards palliation. She is a DNR/DNI at present. I agree with medical management otherwise and would continue to monitor PleurX output. It would seem like her output is lessening for sure and breathing as of this morning has improved. We will continue to follow the patient and periodically during hospitalization. If there are any questions or concerns, feel free to contact me, as I will be international first officer throughout the weekend. Thank you very much for allowing me to participate in her care.
[2020-05-27] MEDS: ENOXAPARIN INJ 30 MG/0.3 ML SYR SQ SCH ×2 (10:12→20:32)
[2020-05-27] MEDS ORDERED: ENOXAPARIN INJ 40 MG/0.4 ML SYR SQ SCH (10:30)
--- NOTE | 2020-05-27 10:51 | Procedure Note ---
Procedure Note Date of Service May 27, 2020 Procedure: Drainage of left Pleurx catheter. Licensed Esthetician Dr. Pacheco Indication pleural effusion, assess patency of Pleurx catheter Estimated blood loss none: The dressing was taken down. The Pleurx site appears clean dry and intact. The Pleurx was accessed via the Pleur-evac bottle. A total of a liter of fluid was easily drained. The patient had some coughing at that time and was decided not to pursue any additional fluid removal. The Pleurx catheter appears to be in good position and is very functional. Would recommend increased intensity of drainage to daily to see if we can potentially auto pleurodesis the patient. She can follow-up with Dr. Bolton in the outpatient setting. Coding CPT Codes Pulmonary/Thoracic - Pulmonary and Thoracic: 35889 Thoracentesis w/o imaging ([id number]) [facility] Procedure Codes (Charges) Pulmonary/Thoracic Procedure 1: Pulmonary and Thoracic: 34635 Thoracentesis w/o imaging
--- NOTE | 2020-05-27 10:59 | Pulmonary Consultation ---
Date of Consultation May 27, 2020 Assessment & Plan (1) Malignant pleural effusion: Impression: 75-year-old female with metastatic renal cell carcinoma and malignant pleural effusion. She status post Pleurx catheter placement. She is admitted with shortness of breath and there was concern that the catheter may be is functioning however on questioning the patient it is revealed that she is only draining it about once a week. Her symptoms may be due to reaccumulation of the pleural fluid. I drained the catheter at bedside for 1 L of fluid. The catheter functioned appropriately throughout the procedure. Recommendations: 1. Malignant pleural effusion with indwelling pleural catheter. The catheter is well-positioned on CT scan and appears functional based on my assessment. Would continue to drain at least every day or every other day. Studies have shown more aggressive drainage upfront may result in a higher incidence of pleurodesis. As the patient is considering her options and may be leaning towards a palliative care, this may need to be adjusted. There is no indication for removal or replacement of the catheter or intrapleural lysis as it is functioning well currently. I have put orders in for the nurses to drain it on a daily basis. If the patient has increasing pain, the drainage rate can be slowed down or drainage can be converted to every other day. There is no indication for repeat imaging at this point time. She can follow-up with Dr. Biswas as previously scheduled in the outpatient pulmonary clinic. Feel free to contact us if we can be of additional assistance. Otherwise we will sign off. History of Present Illness Attending Physician: Marixa Kaur MD History of Present Illness Asked by hospitalist to evaluate this patient with a Pleurx catheter and reported decreased drainage. History is obtained from review electronic medical record as well as interview the patient. Patient is a pleasant 75-year-old female with a history of metastatic renal cell carcinoma on therapy. She underwent a Pleurx catheter placement by one of my partners back in April. She reportedly contacted the office and thinks that she was advised to decrease her drainage down to once a week. She has been doing this and the last time that her Pleurx was drained was over a week ago. She states that she drained over 300 cc at that point time. Patient presented to the emergency room with increased shortness of breath. The H&P notes a decreased output from her Pleurx catheter but the patient states that the catheter has been functioning quite well and has not had any issues with output. She is not had any fevers chills or night sweats. She is on salvage chemotherapy but self discontinued this. She was admitted with acute kidney injury and we are asked to consult on the functionality of the indwelling pleural catheter. Allergies Allergy/AdvReac Type Severity Reaction Status Date / Time [place] And Derivatives Allergy Intermediate Hives Verified 04/29/20 13:02 Iodinated Contrast Media Allergy Intermediate Hives Verified 04/29/20 13:02 [Iodinated Contrast- Oral and IV Dye] shellfish derived Allergy Intermediate Hives Verified 04/29/20 13:02 valsartan Allergy Unknown Unknown Verified 04/29/20 13:02 nivolumab [From Opdivo] AdvReac Intermediate Generalized Verified 04/29/20 13:02 edema pazopanib [From Votrient] AdvReac Intermediate pneumonia Verified 04/29/20 13:02 sunitinib [From Sutent] AdvReac Intermediate Insomnia Verified 04/29/20 13:02 Home Medications Medication Instructions Recorded Confirmed Type allopurinol 100 mg tablet 100 mg PO BID tab 09/17/19 05/26/20 History enoxaparin 40 mg/0.4 mL 40 mg SQ BID ml 09/17/19 05/26/20 History subcutaneous syringe levothyroxine 137 mcg capsule 137 mcg PO DAILY 09/17/19 05/26/20 History pantoprazole 40 mg tablet,delayed 40 mg PO DAILY 09/17/19 05/26/20 History release prochlorperazine maleate 10 mg 10 mg PO Q6H PRN 09/17/19 05/26/20 History tablet vitamin B complex 1 tab PO DAILY 09/17/19 05/26/20 History amlodipine 5 mg tablet 10 mg PO DAILY tab 10/05/19 05/26/20 History diphenoxylate-atropine 2.5 1 tab PO DAILY tab 10/05/19 05/26/20 History mg-0.025 mg tablet oxycodone-acetaminophen 10 mg-325 1 tab PO Q4H PRN 10/05/19 05/26/20 History mg tablet atenolol 50 mg tablet 50 mg PO DAILY tab 04/29/20 05/26/20 History fluticasone propionate 50 1 spray INTRANASAL DAILY #9.9 g 04/29/20 05/26/20 Rx mcg/actuation nasal spray,suspension [id number] [Ed 1 tab PO Q8H PRN 05/26/20 05/26/20 History A-Hist DM] cholecalciferol (vitamin D3) 50 mcg PO DAILY 05/26/20 05/26/20 History dexamethasone 10 ml PO Q6H 05/26/20 05/26/20 History everolimus (antineoplastic) 5 mg PO DAILY 05/26/20 05/26/20 History lenvatinib [Lenvima] 0 mg PO DAILY 05/26/20 05/26/20 History psyllium [Metamucil Sugar Free] 1 tbsp PO DAILY 05/26/20 05/26/20 History Patient History Medical History Acid reflux Acoustic neuroma Chronic anticoagulation Diabetes Stopped med History of chemotherapy History of pulmonary embolism Hypertension Hypothyroidism Malignant pleural effusion Presence of IVC filter Removed in Dec. 2018 Pulmonary embolism Renal cell carcinoma (~2012) Shortness of breath Surgical History H/O craniotomy H/O right nephrectomy 03/30/13 H/O: hysterectomy Hx of cataract surgery Bilateral S/P bronchoscopy with biopsy Status post bilateral knee replacements Family History Mother , 92yo Lung cancer Father , 80yo Cancer of eye Metastatic Diabetes Brother Prostate cancer Daughter No problems noted. 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 Physical Exam Constitutional: WD/WN, vitals as above Eyes: PERRL, conjunctivae normal, anicteric sclerae ENMT: external ear and nose normal, oropharynx normal Neck: normal visual inspection Respiratory: normal respiratory effort; does not use accessory muscles and no cough Decreased breath sounds left lung base, no wheezes, no crackles Cardiovascular: Rate/Rhythm: regular rate and regular rhythm Heart Sounds: no murmur L>R 1+ peripheral edema, no calf tenderness Gastrointestinal (Abdomen): normal bowel sounds, soft, nontender, no hepatosplenomegaly Musculoskeletal: no cyanosis or clubbing, extremities motor strength 5/5 Skin: no rashes, warm and dry Left Pleurx catheter site clean, dry, no purulent drainage, no erythema or tenderness Neurologic: AAOx3, normal speech. Bilateral UE, LE, and face without sensory or motor deficits. Psychiatric: A+Ox3, euthymic affect Results & Data Results & Data ([facility]) Vital Signs (Past 12 Hours) Vital Signs Temp Pulse Pulse Resp BP BP BP 05/27/20 07:24 36.5 C 104 H 16 95/60 L 05/27/20 00:19 36.8 C 104 H 20 97/64 L 05/26/20 23:56 92 H 16 90/67 L 05/26/20 23:31 93 H 20 05/26/20 23:30 93 H 15 90/67 L 05/26/20 23:03 99 H 21 Pulse Ox 05/27/20 07:24 93 05/27/20 00:19 93 05/26/20 23:56 95 05/26/20 23:31 96 05/26/20 23:30 95 05/26/20 23:03 94 Laboratory Results 05/27/20 05:55 05/27/20 05:[address] of the chest from 05/26/2020 was independently reviewed. The Pleurx catheter is in good position with a moderate sized effusion on the left. Pulmonary lesions are stable. Questionable area of hemorrhage within the left obturator internus with large hiatal hernia and multifocal osseous metastatic disease unchanged from prior. PG Care Time/CCT Total # of Minutes Spent Total Time Spent with Patient: Total time spent is greater than 50% in coordination of care (as documented) at patient's floor/unit and/or counseling patient: Coding Level of Care Code 39370 Initial Inpt Care Lvl 3 Diagnoses Malignant pleural effusion J91.0
[2020-05-27] MEDS: D5NSS + 20MEQ KCL 20 MEQ/1,000 ML BAG IV SCH ×2 (11:15→20:31)
--- NOTE | 2020-05-27 13:16 | Hospitalist Progress Note ---
Date of Service May 27, 2020 Assessment & Plan Admission and Anticipated Discharge Date Admission Date: May 26, 2020 Results & Data Results & Data ([facility]) Vital Signs (Past 12 Hours) Vital Signs Temp Pulse Resp BP Pulse Ox 05/27/20 07:24 36.5 C 104 H 16 95/60 L 93
[2020-05-28] MEDS: oxyCODONE/ACETAMINOPHEN 10-325 TAB PO PRN (00:49)
[2020-05-28] MEDS: LEVOTHYROXINE SODIUM 137 MCG TABLET PO SCH (06:03)
[2020-05-28] MEDS: D5NSS + 20MEQ KCL 20 MEQ/1,000 ML BAG IV SCH (06:04)
[2020-05-28 06:49] LABS: BUN Creatinine Ratio 19.6 (10-20); Calcium 6.4 mg/dl (8.5-10.1); Creatinine Clr Calc Pharmacy 39.8 ml/min; Est GFR (African American) 44.8; Est GFR (Non-African American) 38.7; Potassium 4.3 mmol/L (3.5-5.1)
[2020-05-28] MEDS: ATENOLOL 50 MG TABLET PO SCH (08:32)
[2020-05-28] MEDS: FLUTICASONE PROPIONATE NA SPR 16 GM BTL SCH (08:51)
[2020-05-28] MEDS: PANTOprazole 40 MG TAB PO SCH (08:52)
[2020-05-28] MEDS: allopurinoL 100 MG TAB PO SCH ×2 (08:52→20:54)
[2020-05-28] MEDS: ENOXAPARIN INJ 30 MG/0.3 ML SYR SQ SCH ×2 (08:52→20:54)
[2020-05-28] MEDS: DIPHENOXYLATE/ATROPINE 2.5/0.025MG TAB PO SCH (08:53)
--- NOTE | 2020-05-28 13:45 | Hospitalist Progress Note ---
Date of Service May 28, 2020 Assessment & Plan (1) Dyspnea: Kelin is a very pleasant 75-year-old female with a notable past medical history of metastatic RCC s/p right nephrectomy, malignant pleural effusion s/p Pleurx catheter placement\\, hypertension, hypothyroidism, GERD, and a history of pulmonary embolism requiring chronic Lovenox therapy who was admitted for progressive shortness of breath, fatigue, and poor PO intake. Shortness of Breath - ongoing for several weeks; in setting of known malignant pleural effusions. Saturating appropriately on oximetry. - Likely multifactorial: malignant pleural effusions, deconditioning in setting of known malignancy, ?cardiac dysfunction - CT-Chest: Moderate pleural effusions without intrapulmonic pathology - Pulmonology following, appreciate recommendations: - Catheter in-place on CT, functioning appropriately on assessment - No current indication of catheter/intrapleural lysis at present - Continue draining on daily basis - 1000ml drained on admission. - Upon admission, was found to have mildly elevated troponin with a peak of 0.053. ECG without ST-Ts, but did show left-axis deviation - Proceed with TTE to further evaluate cardiac function / possible contribution to dyspnea - Clinically improving -- patient still reporting significant dyspnea on exertion. Saturations continue to remain WNL. - Incentive spirometry encouraged Prerenal Acute Kidney Injury - resolved - Cr elevated to 2.1 on admission in setting of anorexia / frequent vomiting over several weeks - BUN, Cr demonstrating normalization on AM labs s/p IVF - Promote PO intake: fluid goal set to >1800cc/day. Patient amenable to attempting - BMP qAM Severe Protein-Calorie Malnutrition - PO intake improving throughout admission - Patient admits to several weeks of poor appetite, as well as nausea and vomiting. Does not take antiemetics at home. - Since last admission in April of this year, patient has lost 9 kg in weight. - Dietary consult placed, and boost supplements twice daily ordered. - Compazine and Zofran as needed for nausea/vomiting. Renal Cell Carcinoma (Metastatic) -- follows with Dr. Powell in oncology - Recently on Lenvima and everolimus therapies -- patient self-discontinued due to poor tolerance - Oncology consulted, appreciate recommendations: - Continue to monitor drain output - Patient possibly amenable to formal discontinuation of chemotherapy / proceeding with palliative approach - Oncology to further discuss [id number] Hypothyroidism: - Continue home levothyroxine. GERD: - Continue home pantoprazole. CODE STATUS: DNR/DNI FEN GI: Regular diet, boost twice daily -- discontinue mIVF DVT prophylaxis: Continue therapeutic Lovenox 40 mg SQ twice daily Dispo: Med/Surg for dietary evaluation, Pulmonology and Oncology consults, PT/OT (2) JAD (acute kidney injury): (3) History of pulmonary embolism: (4) Malignant pleural effusion: (5) Hypothyroidism: (6) Acid reflux: (7) Nausea: (8) Severe protein-calorie malnutrition: (9) Metastatic renal cell carcinoma: Admission and Anticipated Discharge Date Admission Date: May 26, 2020 Supervising Physician Co-Signing Physician Notes Resident Physician Supervision Note: I independently interviewed and examined the patient and verified the gallegos history and physical, reviewed labs and image studies, discussed the case with the resident Dr. Bishop and agree with the findings and care plan. Subjective Patient reports feeling OK this morning. KALLI. Was able to eat a significant amount of her dinner last night without difficulty. This morning, finished about maybe ~25% of her breakfast before stopping. Says she feels full early -- gets nauseous if she pushes herself too much. No nausea at present. No vomiting. Does say her breathing is getting "better than before." However, notes that when she walks to the bathroom, she gets extremely short of breath. No associated CP. She says that this has improved, but is still significant and takes a while to recover. No pain this AM. Slept OK. No other concerns. Review of Systems Review of Systems: as per HPI Physical Exam Constitutional: Frail appearing 75 year old female who is lying back in her hospital, just having finished breakfast upon my arrival. NAD. Respiratory: normal respiratory effort, lungs clear to auscultation Cardiovascular: RRR, no murmur, no edema Gastrointestinal (Abdomen): normal bowel sounds, soft, nontender, no hepatosplenomegaly Skin: No peripheral edema appreciated in the lower extremities. Results & Data Results & Data ([facility]) Vital Signs (Past 12 Hours) Vital Signs Temp Pulse Resp BP Pulse Ox 05/28/20 07:34 36.6 C 92 H 15 92/63 L 97 Resident Activity Tracking Resident Involvement: Resident Care Provided Care Provided: Adult Hospital Medicine (1) Metastatic renal cell carcinoma Laterality: right Qualified Code(s): C64.1 - Malignant neoplasm of right kidney, except renal pelvis
[2020-05-29] MEDS: oxyCODONE/ACETAMINOPHEN 10-325 TAB PO PRN ×2 (03:11→20:41)
[2020-05-29] MEDS: LEVOTHYROXINE SODIUM 137 MCG TABLET PO SCH (05:35)
[2020-05-29 06:54] LABS: BUN Creatinine Ratio 15.4 (10-20); Calcium 6.9 mg/dl (8.5-10.1); Creatinine Clr Calc Pharmacy 44.5 ml/min; Est GFR (African American) 51.2; Est GFR (Non-African American) 44.2; Potassium 4.4 mmol/L (3.5-5.1)
[2020-05-29] MEDS: FLUTICASONE PROPIONATE NA SPR 16 GM BTL SCH (07:46)
[2020-05-29] MEDS: ATENOLOL 50 MG TABLET PO SCH (07:47)
[2020-05-29] MEDS: PANTOprazole 40 MG TAB PO SCH (07:48)
[2020-05-29] MEDS: DIPHENOXYLATE/ATROPINE 2.5/0.025MG TAB PO SCH (07:48)
[2020-05-29] MEDS: allopurinoL 100 MG TAB PO SCH ×2 (07:48→20:37)
[2020-05-29] MEDS: ENOXAPARIN INJ 30 MG/0.3 ML SYR SQ SCH ×2 (07:48→20:38)
[2020-05-29 08:20] LABS: Appearance Urine Clear (Clear); Bacteria Urine Automated Negative (Negative); Bilirubin Urine Negative (Negative); Blood Urine Negative (Negative); Color Urine Yellow; Epithelial Cell Urine Auto >30 /lpf (0-5); Glucose Urine UA Negative (Negative); Ketones Urine Negative (Negative); Leukocyte Esterase Urine Trace (Negative); Nitrite Urine Negative (Negative); Protein Urine Trace (Negative); RBC Urine Automated 0-4 /hpf (0-4); Specific Gravity Urine 1.013 (1.000-1.030); Urobilinogen Urine Negative (Negative)
--- NOTE | 2020-05-29 09:42 | XCELERA ---
[id number]
--- NOTE | 2020-05-29 11:16 | Hospitalist Progress Note ---
Date of Service May 29, 2020 Assessment & Plan (1) Dyspnea: Kelin is a very pleasant 75-year-old female with a notable past medical history of metastatic RCC s/p right nephrectomy, malignant pleural effusion s/p Pleurx catheter placement\, hypertension, hypothyroidism, GERD, and a history of pulmonary embolism requiring chronic Lovenox therapy who was admitted for progressive shortness of breath, fatigue, and poor PO intake. Shortness of Breath - ongoing for several weeks; in setting of known malignant pleural effusions. Saturating appropriately on oximetry at rest. - Likely multifactorial: malignant pleural effusions, deconditioning in setting of known malignancy, ?carcinomatosis, ? deconditioning - CT-Chest: Moderate pleural effusions. Nodules noted in chest previously still present, with RML nodule demonstrating slight increase in size compared to 03/2020 - H&H without significant evidence of anemia - Pulmonology following, appreciate recommendations: - Catheter in-place on CT, functioning appropriately on assessment - No current indication of catheter/intrapleural lysis at present - Continue draining on daily basis - Upon admission, was found to have mildly elevated troponin with a peak of 0.053. ECG without ST-Ts, but did show left-axis deviation - Echocardiogram (05/29): Normal biventricular function with top-normal RVSP. IVC size, RA pressures WNL. - Cardiac etiology seems less likely at this time given these findings - Clinically improving at rest -- patient still reporting significant dyspnea on exertion. Saturations continue to remain WNL when immobile. - Incentive spirometry encouraged -- 10x/hr, as much as possible (patient reports this is helping) - 2 Step test ordered: with activity, saturation at about 90% / RR 20 -- recovered back to >95% and RR < 20 upon rest. No supplemental O2 required - To further discuss with oncology on input for etiology. - Continue PT while here -- would benefit from HH/PT upon discharge Renal Cell Carcinoma (Metastatic) -- follows with Dr. Powell in oncology - Recently on Lenvima and everolimus therapies -- patient self-discontinued due to poor tolerance - Oncology consulted, appreciate recommendations: - Continue to monitor drain output - Patient possibly amenable to formal discontinuation of chemotherapy / proceeding with palliative approach - Oncology to further discuss [id number] Prerenal Acute Kidney Injury - resolved - Cr elevated to 2.1 on admission in setting of anorexia / frequent vomiting over several weeks - BUN, Cr demonstrating normalization on AM labs s/p IVF - Promote PO intake: fluid goal set to >1800cc/day. Patient amenable to attempting - BMP qAM Severe Protein-Calorie Malnutrition - PO intake improving throughout admission - Patient admits to several weeks of poor appetite, as well as nausea and vomiting. Does not take antiemetics at home. - Since last admission in April of this year, patient has lost 9 kg in weight. - Dietary consult placed, and boost supplements twice daily ordered. - Compazine and Zofran as needed for nausea/vomiting Hypothyroidism: - Continue home levothyroxine. GERD: - Continue home pantoprazole. CODE STATUS: DNR/DNI FEN GI: Regular diet, boost twice daily (fluid goal: >1800cc/day liquids) DVT prophylaxis: Continue therapeutic Lovenox 40 mg SQ twice daily Dispo: Med/Surg for dietary evaluation, Pulmonology and Oncology consults, PT/OT (2) JAD (acute kidney injury): (3) History of pulmonary embolism: (4) Malignant pleural effusion: (5) Hypothyroidism: (6) Acid reflux: (7) Nausea: (8) Severe protein-calorie malnutrition: (9) Metastatic renal cell carcinoma: Admission and Anticipated Discharge Date Admission Date: May 26, 2020 Supervising Physician Co-Signing Physician Notes Resident Physician Supervision Note: I independently interviewed and examined the patient and verified the gallegos history and physical, reviewed labs and image studies, discussed the case with the resident Dr. Bishop and agree with the findings and care plan. Subjective Patient did have an episode of back pain last night that began around 6 the top of her waist/the bottom of her rib cage and extended in a bandlike fashion across the center of her chest. She said there was some urinary pressure associated with this, but no urgency. She received 1 Percocet and subsequently experienced complete resolution of her pain. No recurrence of this pain throughout the night or into the morning. At the bedside this morning, patient reports feeling well overall. Denies any pain at present. Denies any urinary frequency, urgency over the last few days. In fact, she says that her urge to pee has decreased. She notes that her appetite has remained okay, she was able to finish all of her breakfast this morning, with some discomfort. No nausea present. She notes that she continues to have shortness of breath with getting up and going to the bathroom. She denies any shortness of breath when seated or with talking. She was seen by PT yesterday, which she said went well overall. Review of Systems Review of Systems: As per HPI Physical Exam Constitutional: Well, but tired appearing 75-year-old female who is lying back in her hospital bed relaxed upon my arrival. Throughout her discussion, she is completely alert and oriented and contributes appropriately. She smiles intermittently. There is no conversational dyspnea. No acute distress. Respiratory: Mildly increased respiratory effort. There is diminishment of breath sounds at both lung bases, with some improvement in the right lower lung umanzor. Otherwise, lungs were clear to auscultation bilaterally, no crackles or wheezes appreciated. Cardiovascular: Normal rate and regular rhythm. S1 and S2 are present without murmurs rubs or gallops. No peripheral edema in the lower extremities bilaterally. Jugular venous pulse could not be appreciated when sitting up 90 degrees. Hepatojugular reflex was negative on my examination. Gastrointestinal (Abdomen): Normoactive bowel sounds. Abdomen is soft, nontender, nondistended. Musculoskeletal: There is no tenderness to palpation down the cervical, thoracic, lumbar spine. There is no paraspinal tenderness or spasms. There is no costovertebral tenderness to palpation. Results & Data Results & Data ([facility]) Vital Signs (Past 12 Hours) Vital Signs Temp Pulse Resp BP Pulse Ox 05/29/20 07:22 36.3 C L 96 H 16 100/71 96 05/28/20 23:58 36.9 C 106 H 16 102/71 95 Resident Activity Tracking Resident Involvement: Resident Care Provided Care Provided: Adult Hospital Medicine (1) Metastatic renal cell carcinoma Laterality: right Qualified Code(s): C64.1 - Malignant neoplasm of right kidney, except renal pelvis
[2020-05-30] MEDS: LEVOTHYROXINE SODIUM 137 MCG TABLET PO SCH (05:56)
[2020-05-30] MEDS: oxyCODONE/ACETAMINOPHEN 10-325 TAB PO PRN (08:44)
[2020-05-30] MEDS ORDERED: ONDANSETRON 4 MG OD TAB PO PRN (08:55)
[2020-05-30] MEDS: allopurinoL 100 MG TAB PO SCH (09:29)
[2020-05-30] MEDS: ATENOLOL 50 MG TABLET PO SCH (09:29)
[2020-05-30] MEDS: DIPHENOXYLATE/ATROPINE 2.5/0.025MG TAB PO SCH (09:29)
[2020-05-30] MEDS: ENOXAPARIN INJ 30 MG/0.3 ML SYR SQ SCH (09:29)
[2020-05-30] MEDS: PANTOprazole 40 MG TAB PO SCH (09:29)
[2020-05-30] MEDS: FLUTICASONE PROPIONATE NA SPR 16 GM BTL SCH (09:29)
--- NOTE | 2020-05-30 11:08 | Hospitalist Progress Note ---
Date of Service May 30, 2020 Assessment & Plan (1) Dyspnea: Kelin is a very pleasant 75-year-old female with a notable past medical history of metastatic RCC s/p right nephrectomy, malignant pleural effusion s/p Pleurx catheter placement\, hypertension, hypothyroidism, GERD, and a history of pulmonary embolism requiring chronic Lovenox therapy who was admitted for progressive shortness of breath, fatigue, and poor PO intake. Shortness of Breath - ongoing for several weeks; in setting of known malignant pleural effusions. Saturating appropriately on oximetry at rest. - Likely multifactorial: malignant pleural effusions, deconditioning in setting of known malignancy, ?carcinomatosis, ? deconditioning - CT-Chest: Moderate pleural effusions. Nodules noted in chest previously still present, with RML nodule demonstrating slight increase in size compared to 03/2020 - H&H without significant evidence of anemia - Pulmonology following, appreciate recommendations: - Catheter in-place on CT, functioning appropriately on assessment - No current indication of catheter/intrapleural lysis at present - Continue draining on daily basis - In the setting up questionable ribcage discomfort, could be related to drainage and per pulmonology notes, can consider decreasing rate if discomfort/pain continues - Upon admission, was found to have mildly elevated troponin with a peak of 0.053. ECG without ST-Ts, but did show left-axis deviation - Echocardiogram (05/29): Normal biventricular function with top-normal RVSP. IVC size, RA pressures WNL. - Cardiac etiology seems less likely at this time given these findings - Clinically improving at rest -- patient still reporting significant dyspnea on exertion. Saturations continue to remain WNL when immobile. - Incentive spirometry encouraged -- 10x/hr, as much as possible (patient reports this is helping) - 2 Step test ordered: with activity, saturation at about 90% / RR 20 -- recovered back to >95% and RR < 20 upon rest. No supplemental O2 required - To further discuss with oncology on input for etiology - Continue PT while here -- would benefit from HH/PT upon discharge Renal Cell Carcinoma (Metastatic) -- follows with Dr. Powell in oncology - Recently on Lenvima and everolimus therapies -- patient self-discontinued due to poor tolerance - Oncology consulted, appreciate recommendations: - Continue to monitor drain output - Patient possibly amenable to formal discontinuation of chemotherapy / proceeding with palliative approach - Oncology to further discuss [id number] Prerenal Acute Kidney Injury - resolved - Cr elevated to 2.1 on admission in setting of anorexia / frequent vomiting over several weeks - BUN, Cr demonstrating normalization on AM labs s/p IVF - Promote PO intake: fluid goal set to >1800cc/day. Patient amenable to attempting - BMP qAM Severe Protein-Calorie Malnutrition - PO intake improving throughout admission - Patient admits to several weeks of poor appetite, as well as nausea and vomiting. Does not take antiemetics at home. - Since last admission in April of this year, patient has lost 9 kg in weight. - Dietary consult placed, and boost supplements twice daily ordered. - Compazine and Zofran as needed for nausea/vomiting Hypothyroidism: - Continue home levothyroxine. GERD: - Continue home pantoprazole. CODE STATUS: DNR/DNI FEN GI: Regular diet, Boost twice daily (fluid goal: >1800cc/day liquids) DVT prophylaxis: Continue therapeutic Lovenox 40 mg SQ twice daily Dispo: Med/Surg for dietary evaluation, Pulmonology and Oncology consults, PT/OT (2) JAD (acute kidney injury): (3) History of pulmonary embolism: (4) Malignant pleural effusion: (5) Hypothyroidism: (6) Acid reflux: (7) Nausea: (8) Severe protein-calorie malnutrition: (9) Metastatic renal cell carcinoma: Admission and Anticipated Discharge Date Admission Date: May 26, 2020 Subjective Patient seen this AM sitting at the edge of her bed. She had part of her breakfast but says she did not have much of an appetite. She also complained of pain at the lower edge of her ribcage/ epigastric region. She expressed to me th at the pain seemed to be more at her rib cage and maybe felt like some pressure. However, she later told RN it was more epigastric and was similar to GI discomfort she's had before. Received a dose of oral Zofran, which seemed to help. Denies chest pain, palpitations, stool changes, vomiting. Review of Systems Review of Systems: All systems reviewed & are unremarkable except as noted in Subjective Physical Exam Constitutional: WD/WN, vitals as above In pain Respiratory: normal respiratory effort, lungs clear to auscultation Auscultation: + diminished lung sounds (bilateral bases) Cardiovascular: RRR, no murmur, no edema Heart Sounds: normal S1 and normal S2 Gastrointestinal (Abdomen): normal bowel sounds, soft, nontender, no hepatosplenomegaly Musculoskeletal: no cyanosis or clubbing, extremities motor strength 5/5 Chest wall/rib cage are nontender to palpation Skin: no rashes, warm and dry Psychiatric: A+Ox3, euthymic affect Results & Data Results & Data ([facility]) Vital Signs (Past 12 Hours) Vital Signs Temp Pulse Resp BP Pulse Ox 05/30/20 07:15 36.8 C 112 H 16 101/69 96 (1) Metastatic renal cell carcinoma Laterality: right Qualified Code(s): C64.1 - Malignant neoplasm of right kidney, except renal pelvis
--- NOTE | 2020-05-30 16:37 | Discharge Summary ---
Date of Service May 30, 2020 Admission HPI Per Admitting Provider 75-year-old female past medical history significant for metastatic renal cell carcinoma s/p right nephrectomy with malignant pleural effusion s/p Pleurx catheter, hypertension, hypothyroidism, GERD, history PE on chronic Lovenox therapy who presented to the ER for worsening shortness of breath over the last 2 weeks, without associated chest pain, diaphoresis, abdominal pain, recent fevers or chills. Reports that over the same amount of time, she has noticed a decrease in output from her Pleurx catheter. She also reports that about a week ago some of her chemotherapy medications were changed, and she started Lenvima and everolimus therapy at the direction of Dr. Powell. She admits that since getting the Pleurx catheter her appetite has been getting worse and worse, such that she has to "force herself to eat and drink, and every time she does she feels like she is going to throw up". Has been having a lot of dry heaves, and therefore eats very little. In the ER patient was found to have leukopenia to 4.47 without neutropenia, elevated BUN and creatinine to 2.13, mildly elevated alk phos to 142, mildly elevated troponin to 0.051 without EKG changes suggestive of [place]. COVID-[address] chest showed moderate left pleural effusion and atelectasis, no findings suggestive of pneumonia. Admission Exam Per Admitting Provider Constitutional: WD/WN, vitals as above Eyes: PERRL, conjunctivae normal, anicteric sclerae ENMT: external ear and nose normal, oropharynx normal Neck: normal visual inspection Respiratory: normal respiratory effort; does not use accessory muscles and no cough Decreased breath sounds left lung base, no wheezes, no crackles Cardiovascular: Rate/Rhythm: regular rate and regular rhythm Heart Sounds: no murmur L>R 1+ peripheral edema, no calf tenderness Gastrointestinal (Abdomen): normal bowel sounds, soft, nontender, no hepatosplenomegaly Musculoskeletal: no cyanosis or clubbing, extremities motor strength 5/5 Skin: no rashes, warm and dry Left Pleurx catheter site clean, dry, no purulent drainage, no erythema or tenderness Neurologic: AAOx3, normal speech. Bilateral UE, LE, and face without sensory or motor deficits. Psychiatric: A+Ox3, euthymic affect Principal Diagnosis Shortness of breath Discharge Exam Constitutional: WD/WN, vitals as above In pain Respiratory: normal respiratory effort, lungs clear to auscultation Auscultation: + diminished lung sounds (bilateral bases) Cardiovascular: RRR, no murmur, no edema Heart Sounds: normal S1 and normal S2 Gastrointestinal (Abdomen): normal bowel sounds, soft, nontender, no hepatosplenomegaly Musculoskeletal: no cyanosis or clubbing, extremities motor strength 5/5 Chest wall/rib cage are nontender to palpation Skin: no rashes, warm and dry Psychiatric: A+Ox3, euthymic affect Discharge Data Allergies Allergy/AdvReac Type Severity Reaction Status Date / Time [place] And Derivatives Allergy Intermediate Hives Verified 04/29/20 13:02 Iodinated Contrast Media Allergy Intermediate Hives Verified 04/29/20 13:02 [Iodinated Contrast- Oral and IV Dye] shellfish derived Allergy Intermediate Hives Verified 04/29/20 13:02 valsartan Allergy Unknown Unknown Verified 04/29/20 13:02 nivolumab [From Opdivo] AdvReac Intermediate Generalized Verified 04/29/20 13:02 edema pazopanib [From Votrient] AdvReac Intermediate pneumonia Verified 04/29/20 13:02 sunitinib [From Sutent] AdvReac Intermediate Insomnia Verified 04/29/20 13:02 Consultations 05/26/20 21:41 ED Decision to Admit Stat 05/27/20 00:19 Consult Oncology Routine Consult Pulmonology Routine Ordered Studies 05/26/20 19:02 CT abd pelvis wo con Stat CT chest diagnostic wo con Stat Hospital Course (1) Dyspnea: Neli is a 75-year-old female with a notable past medical history of metastatic renal cell carcinoma status post right nephrectomy, malignant pleural effusion status post Pleurx catheter placement, hypertension, hypothyroidism, GERD and history of pulmonary emboli requiring chronic Lovenox therapy who presented to [facility] on May 26 for progressive shortness of breath, fatigue, and poor p.o. intake. On her arrival to the ED, Neli was noted to be dyspneic, but saturating well on room air. She had a mild JAD on labs. She underwent a CT scan of the chest, which showed a moderate sized pleural effusion; unchanged from prior. On history, patient did note decreased output over the last 2 weeks. Suspicion for pulmonary embolism was considered, but given adherence to twice daily Lovenox therapy and absence of hypoxia, this seems unlikely as a cause. There were no findings suggestive of pneumonia. As such, pulmonology was consulted for further evaluation of this dyspnea. She was admitted for further work-up and monitoring. Upon her admission, she was seen by pulmonology, who reported that her Pleurx catheter was nicely in place on CT and functioning appropriately on assessment. There were no indications for catheter/intrapleural lysis. Drainage was continued on a daily basis and good output was recorded. Given some increased work of breathing with exertion (without any chest pain or pressure), she also received an echocardiogram which demonstrated normal biventricular function with top normal right ventricular systolic pressures. Vena cavae and right atrial pressures/sizes were within normal limits. As such, cardiac event etiology seems less likely. A two-step test was ordered, which did demonstrate mild desaturations to 90% on room air while exercising, with subsequent resolution to a normal SaO2 on room air following discontinuation. Given this otherwise negative work-up, it is likely that her shortness of breath, fatigue, and poor p.o. intake represent deconditioning in the setting of known malignancy, with contribution from her pre-existing malignant pleural effusions. Upon discharge, her plan was to return home with her daughter and discuss outpatient hospice with her PCP and possibly oncologist. In addition to focusing on core dyspnea related conditions while hospitalized, Kelin also received intravenous fluids for correction of her prerenal JAD. We also worked with her on improving p.o. intake given her severe protein calorie malnutrition. Compazine and Zofran were available as needed for nausea, but were sparsely used. Her other chronic home medications were continued throughout her admission. (2) Hypertension: (3) Severe protein-calorie malnutrition: (4) Nausea: (5) JAD (acute kidney injury): (6) Hypothyroidism: (7) Chronic anticoagulation: (8) Malignant pleural effusion: (9) History of pulmonary embolism: (10) Metastatic renal cell carcinoma: Total Time Total Time Spent Total Time Spent (In Minutes): Less than 30 Discharge Plan Discharge Items Patient Disposition: Home - Self-Care Reason For Visit: SOB, JAD Discharge Diagnosis: Shortness of breath Activity: Per Instructions section Non-emergency contact: Primary Care Provider and Oncologist Call non-emergency contact if: you have any medication questions and your symptoms worsen Follow-up/Referrals: Yaritza Hawkins PA-C [Primary Care Provider] - Diet: Regular Addtl Attending Provider Instructions: You came to [facility] due to shortness of breath & fatigue for the past few weeks, as well as decreased appetite. Imaging of your chest showed pleural effusion similar to your most previous imaging but your oxygen saturation remained adequate all throughout your admission. You were evaluated by Pulmonology, who reported that your Pleurx catheter was adequately placed and functioning properly. You were seen by oncology as well, who discussed with you the possibility of withdrawing treatment going forward. You also had an echocardiogram done, which showed normal heart function and so, cardiac causes for your symptoms were ruled out. In light of the above, we believe your symptoms to be secondary to your metastatic cancer, and as such, we believe that the best place for you would be at home. We recommend that you follow up with your primary care provider for further discussion of hospice and/or palliative care, as we briefly discussed today. Thank you for allowing us to care for you during your admission. Pending Studies at Discharge: No Stand-Alone Forms: [facility], Smoking Cessation Medications and DC Order Prescriptions: Continued allopurinol 100 mg tablet 100 mg PO BID RF: 0 levothyroxine 137 mcg capsule 137 mcg PO DAILY RF: 0 vitamin B complex [B Complex-Vitamin B12] Tablet 1 tab PO DAILY RF: 0 enoxaparin [Lovenox] 40 mg/0.4 mL syringe 40 mg SQ BID RF: 0 pantoprazole 40 mg tablet,delayed release (DR/EC) 40 mg PO DAILY RF: 0 prochlorperazine maleate [Compazine] 10 mg tablet 10 mg PO Q6H PRN (Reason: Nausea) RF: 0 amlodipine 5 mg tablet 10 mg PO DAILY RF: 0 oxycodone-acetaminophen 10-325 mg tablet 1 tab PO Q4H PRN (Reason: Pain) RF: 0 diphenoxylate-atropine [Lomotil] 2.5-0.025 mg tablet 1 tab PO DAILY RF: 0 atenolol 50 mg tablet 50 mg PO DAILY RF: 0 fluticasone propionate [Allergy Relief (fluticasone)] 50 mcg/actuation spray,suspension 1 spray intranasal DAILY Qty: 9.9 RF: 1 cholecalciferol (vitamin D3) 50 mcg (2,000 unit) Tablet 50 mcg PO DAILY RF: 0 psyllium Powder 1 tbsp PO DAILY RF: 0 everolimus (antineoplastic) 5 mg tablet 5 mg PO DAILY RF: 0 Lenvima 18 mg/day (10 mg x 1-4 mg x2) capsule 0 mg PO DAILY RF: 0 Ed A-Hist DM 4-10-10 mg tablet 1 tab PO Q8H PRN (Reason: Allergy Symptoms) RF: 0 dexamethasone 0.5 mg/5 mL solution 10 ml PO Q6H RF: 0 Discharge Orders: Discharge Order (Routine); Ordered 05/30/20 Ordered By: Raymond Gold Admission Data Admit Date/Time: 05/26/20 22:22 Attending Provider: Venkat Olivares Admit Provider: Karlene Meléndez Primary Care Provider: Yaritza Hawkins Other Providers: Estrella Garcia ; Darryl Powell ; Gilberto Pacheco ; Marixa Kaur Other Interventions: Discharge Summary Assessment (RN) Last Done: 05/30/20 16:40 Supervising Physician Co-Signing Physician Notes I personally examined the patient and verified all gallegos points of history and exam, discussed case, and agree with decision making with Dr Reilly. Feeling about the same. Ongoing fatigue and a degree of dyspnea. In discussions, she seems keenly aware that this largely relates to her cancer and the progression thereof. She asks what kind of time she has left, and asks if it would be okay for her to go home. Vitals noted, in general she is awake and alert pleasant no distress. HEENT normocephalic atraumatic mucous membranes moist. Breathing unlabored no accessory muscle use good effort. Skin shows no rashes no pallor or icterus. Neuro shows no focal deficits. Dyspnea/severe protein calorie malnutrition/metastatic renal cell cancershe appears to have an overall very poor prognosis. Oncology consult even largely suggested that a palliative course of treatment would likely be appropriatethey simply wanted to be able to continue discussions. That said the patient herself seems very clear that she wants to go home with a palliative/hospice type of a plan of care. She has no significant needs at this time, and has pain medication at home. We will ask case management to help facilitate setting up a hospice agency. Otherwise she is stable for home as above. Resident Activity Tracking Resident Involvement: Resident Care Provided Care Provided: Adult [facility]
--- NOTE | 2020-05-30 18:38 | Billing Data ---
Date of Service May 30, 2020 Coding Level of Care Code D/C Day Management <30 mins
== END 2020-05-30 17:14 | disposition home or self-care (01) | DRG 686 ==
LOC: ED 17:24 → 3N 22:22 → SUATTDRO 22:22 → 3N 23:56